=== PATIENT | female | born 1960 | race Caucasian/White ===

== ENCOUNTER → 2020-10-06 12:44 | Outpatient (CLI) | payer OTHER, MEDICAID, SELFPAY ==
--- NOTE | 2020-10-06 | DI.MRI.S_ITS ---
PROCEDURE: MR HEAD/BRAIN WO CON INDICATIONS: Other amnesia TECHNIQUE: Non-contrast axial T1 spin echo, axial T2 fast spin echo, sagittal and axial FLAIR, coronal T2 fast spin echo, axial gradient echo, axial diffusion and ADC through the brain. COMPARISON: None. FINDINGS: Image quality: This examination is limited by involuntary motion artifact. CSF spaces: Ventricles appear symmetric in size and shape. Basal cisterns are patent. No extra-axial fluid collections. Brain: No intracranial bleeds or mass effects. There is cerebral volume loss for age. There are periventricular and deep white matter chronic small vessel ischemic changes. Brainstem appears normal. Diffusion-weighted images show no acute ischemic insults. No chronic ischemic insults. Normal intravascular flow voids are present. Skull and face: Calvarial bone marrow is normal in signal. Orbits are normal. Sinuses: Sinuses and mastoids are clear. IMPRESSION: Limited study demonstrating age-appropriate brain parenchymal volume loss and chronic small vessel ischemic change. No findings of acute or subacute infarction can be seen. Dictated by: Santiago Slater M.D. on 10/06/2020 at 12:42 Approved by: Santiago Slater M.D. on 10/06/2020 at 12:43
== END ==
PROVIDERS: PCP Nurse Practitioner Family; Referring Provider Nurse Practitioner Family; Visit Provider Nurse Practitioner Family
DX: R41.3 Other amnesia (principal); R41.89 Other symptoms and signs involving cognitive functions and awareness; R46.89 Other symptoms and signs involving appearance and behavior
CPT/HCPCS: 70551

== ENCOUNTER 2020-11-10 18:26 | Inpatient (IN) | payer OTHER, MEDICAID, SELFPAY ==
[2020-11-10] VITALS (11 sets, daily range): BP systolic 110–130; BP diastolic 54–86; PULSE 82–102; RESP 24; TEMP 36.3; O2SAT 93–96
[2020-11-10 20:20] LABS: Add Manual Diff / Slide Review NO; Basophils Absolute Auto 0 /uL (0-100); Basophils Percent Auto 0.3 % (0-2); Eosinophils Absolute Auto 200 /uL (0-450); Eosinophils Percent Auto 1.4 % (2-4); Hematocrit 38.8 % (36-46); Hemoglobin 12.7 g/dL (12.0-16.0); Lymphocytes Absolute Auto 1100 /uL (1100-4500); Mean Corpuscular HGB Conc 32.9 % (30-36); Mean Corpuscular Hemoglobin 29.4 PG (26-34); Mean Corpuscular Volume 89.4 fL (80-100); Monocytes Absolute Auto 700 /uL (0-900); Monocytes Percent Auto 5.7 % (3-14); Neutrophils Absolute Auto 10200 /uL (1500-7000); Neutrophils Percent Auto 83.6 % (50-75); Platelet Count 502 X10^3/uL (150-400); Red Blood Cell Count 4.34 X10^6/uL (4.0-5.2); Red Cell Distribution Width 14.3 % (11.6-14.8); White Blood Cell Count 12.2 X10^3/uL (4.5-11.0)
[2020-11-10 20:34] LABS: Acetaminophen < 10 ug/mL (10-30); Alanine Aminotransferase 11 IU/L (<35); Albumin 4.4 g/dL (3.5-5.0); Albumin Globulin Ratio 1.3 (1.0-2.8); Alkaline Phosphatase 105 U/L (38-126); Aspartate Aminotransferase 18 IU/L (14-36); BUN Creatinine Ratio 8.1 (6-22); Bilirubin Total 0.4 mg/dL (0.2-1.3); Blood Urea Nitrogen 12 mg/dL (7-17); Calcium 10.6 mg/dL (8.4-10.2); Carbon Dioxide 21 mmol/L (22-32); Chloride 104 mmol/L (98-107); Creatine Kinase 47 U/L (30-135); Estimated Glomerular Filt Rate 35.7 mL/min (>60); Ethanol (ETOH) < 10 mg/dL; Globulin 3.4 g/dL (1.7-4.1); Glucose 124 mg/dL (80-110); HEMOLYSIS < 15 (0-50); Potassium 3.8 mmol/L (3.4-5.1); Salicylate < 1.0 mg/dL (<20); Sodium 135 mmol/L (137-145); Total Protein 7.8 g/dL (6.3-8.2)
[2020-11-10 20:36] LABS: Ammonia (NH3) < 9 umol/L (9-30); Lactate (Lactic Acid) 0.8 mmol/L (0.7-2.1)
[2020-11-10 20:44] LABS: Troponin I < 0.012 ng/mL (0.01-0.034)
[2020-11-10 20:49] LABS: Procalcitonin 0.11 ng/mL (<0.5)
[2020-11-10 20:51] LABS: Lithium 2.1 mmol/L (0.6-1.2)
--- NOTE | 2020-11-10 21:08 | ED.GENADULT ---
HPI - General Adult General Chief complaint: Altered Mental Status Stated complaint: Stopped lithium, disorganized thoughts Time Seen by Provider: 11/10/20 19:59 Source: patient Mode of arrival: Ambulatory History of Present Illness HPI narrative: Patient is a 60-year-old female who arrived by private vehicle under recommendation of her mental health provider for evaluation of which she describes is disoriented thoughts since stopping her lithium. Patient states that approximately 5 days ago she stopped all of her medication. She also states that she stopped eating and drinking at that time. She could not give me an exact reason as to why she decided to do this but 3 days ago started to feel very poorly. She then realized ?maybe I am on these medications for reason ?but did not start taking them again. She then got in contact with her prescribing provider who advised that she come to the emergency department for evaluation. Related Data Home Medications Medication Instructions Recorded Confirmed carisoprodol 250 mg tablet (Soma) 250 mg PO TID 07/11/19 07/11/19 clonazepam 1 mg tablet (Klonopin) 1 mg PO BID 07/11/19 07/11/19 conj estrog-medroxyprogest raeann PO 07/11/19 07/11/19 [Prempro] levothyroxine 25 mcg capsule 25 mcg PO DAILY 07/11/19 07/11/19 lithium carbonate 600 mg capsule 600 mg PO DAILY cap 07/11/19 07/11/19 Allergies Allergy/AdvReac Type Severity Reaction Status Date / Time No Known Drug Allergies Allergy Unverified 07/11/19 10:05 Review of Systems Constitutional Constitutional: Denies fever(s), Denies headache(s) and Reports weakness Eyes Eyes: Denies change in vision ENT Ears, Nose, Mouth, and Throat: Denies vertigo, Denies dizziness and Denies headache(s) Cardiovascular Cardiovascular: Denies chest pain and Denies dyspnea Respiratory Respiratory: Denies dyspnea Gastrointestinal Gastrointestinal: Denies abdominal pain Musculoskeletal Musculoskeletal: Reports system reviewed and no additional complaints, except as documented Integumentary/Breasts Skin/Breast: Reports system reviewed and no additional complaints, except as documented Neurologic Neurologic: Denies abnormal speech, Reports behavioral changes, Reports confusion, Denies vertigo, Denies dizziness, Denies headache(s) and Reports weakness Psychiatric Psychiatric: Denies anxiety, Reports behavioral changes, Reports confusion, Denies homicidal ideation and Denies suicidal ideation Endocrine Endocrine: Reports system reviewed and no additional complaints, except as documented Hematologic/Lymphatic On Anticoagulants: No Allergic/Immunologic Allergic/Immunologic: Reports system reviewed and no additional complaints, except as documented Patient History Medical History Acne Anemia (~2015) Anxiety and depression Bipolar disease, chronic Carpal tunnel syndrome Chronic back pain Fibromyalgia (~1993) Headache Hypothyroidism Low grade squamous intraepithelial lesion (LGSIL) on cervical Pap smear Migraines Plantar warts Shoulder pain (~2017) Tremor Surgical History (Updated 07/21/19 @ 21:12 by Helen Gallegos) Anesthesia H/O hand surgery History of section Family History (Updated 07/11/19 @ 11:29 by Ignacia Tovar MD) Father CAD (coronary artery disease) Mother Uterine cancer Sister No problems noted. Sister No problems noted. Daughter No problems noted. Daughter No problems noted. Son No problems noted. Social History Smoking Status: Never smoker Smoking Status: Never smoker Exam Initial Vital Signs Initial Vital Signs: Vital Signs Temperature 97.4 F L 11/10/20 18:25 Pulse Rate 102 H 11/10/20 18:25 Respiratory Rate 24 11/10/20 18:25 Pulse Oximetry 94 11/10/20 18:25 Const General: cooperative and comfortable HENMT Head: normal to inspection and normocephalic Resp Auscultation: clear to auscultation bilaterally Cardio Rate: regular rate GI Inspection: normal to inspection Skin General: no rashes or lesions noted Neuro General: patient alert, patient awake, patient oriented x3 and moves all extremities Extrem General: capillary refill normal Psych Appearance: disheveled Other: She does have a flat affect, denies SI or HI. His calm. Cooperative. Course Orders Ordered: ED Orders 11/11/20 02:56 Ictotest Urine Stat Urinalysis and Microscopic Stat 11/11/20 03:00 Basic Metabolic Panel Stat [place] Stat 11/11/20 03:38 Urine Drug Screen, Rapid Stat 11/11/20 07:00 [place] Stat Sodium Chloride (Normal Saline 0.9%) 1,000 mls @ 125 mls/hr IV CONT YRIS Last Admin: 11/10/20 21:34 Dose: 125 mls/hr Documented by: SHANDRA Discontinued Medications Nicotine (Nicotine 21 Mg Patch) 21 mg TOP NOW ONE Stop: 11/10/20 21:13 Last Admin: 11/10/20 21:28 Dose: Not Given Documented by: CLAUDIA Vital Signs Vital signs: Vital Signs - 8 hr 11/11/20 00:30 11/11/20 01:00 11/11/20 01:30 Pulse Rate 85 83 85 Blood Pressure 106/68 112/57 L Pulse Oximetry 96 93 90 L 11/11/20 01:31 11/11/20 02:00 11/11/20 02:30 Pulse Rate 82 83 82 Blood Pressure 105/54 L 119/58 L 129/59 L Pulse Oximetry 98 95 95 11/11/20 03:00 11/11/20 03:09 11/11/20 03:30 Pulse Rate 88 85 82 Blood Pressure 117/57 L 118/60 Pulse Oximetry 95 96 95 11/11/20 04:00 11/11/20 04:01 11/11/20 04:30 Pulse Rate 81 82 80 Blood Pressure 115/58 L 123/58 L Pulse Oximetry 93 93 94 11/11/20 05:00 11/11/20 05:30 11/11/20 05:47 Pulse Rate 75 97 H 80 Blood Pressure 167/65 H Pulse Oximetry 97 94 962 H 11/11/20 06:00 11/11/20 06:30 Pulse Rate 88 86 Blood Pressure Pulse Oximetry 93 93 Medical Decision Making Lab Data Lab results reviewed: Yes I reviewed the patient's lab results. Result diagrams: 11/10/20 20:05 11/11/20 03:00 Labs: Lab Results 11/10/20 11/10/20 11/10/20 Range/Units 20:05 20:05 20:05 WBC 12.2 H (4.5-11.0) X10^3/uL RBC 4.34 (4.0-5.2) X10^6/uL Hgb 12.7 (12.0-16.0) g/dL Hct 38.8 (36-46) % MCV 89.4 (80-100) fL MCH 29.4 (26-34) PG MCHC 32.9 (30-36) % RDW 14.3 (11.6-14.8) % Plt Count 502 H (150-400) X10^3/uL Neut % (Auto) 83.6 H (50-75) % Lymph % (Auto) 9.0 L (25-40) % Wallace % (Auto) 5.7 (3-14) % Eos % (Auto) 1.4 L (2-4) % Baso % (Auto) 0.3 (0-2) % Neut # (Auto) 97198 H (1107-5837) /uL Lymph # (Auto) 1100 (8420-3032) /uL Wallace # (Auto) 700 (0-900) /uL Eos # (Auto) 200 (0-450) /uL Baso # (Auto) 0 (0-100) /uL Sodium 135 L (137-145) mmol/L Potassium 3.8 (3.4-5.1) mmol/L Chloride 104 (98-107) mmol/L Carbon Dioxide 21 L (22-32) mmol/L BUN 12 (7-17) mg/dL Creatinine 1.49 H (0.52-1.04) mg/dL Estimated GFR 35.7 L (>60) mL/min BUN/Creatinine Ratio 8.1 (6-22) Glucose 124 H (80-110) mg/dL Lactate 0.8 (0.7-2.1) mmol/L Calcium 10.6 H (8.4-10.2) mg/dL Total Bilirubin 0.4 (0.2-1.3) mg/dL AST 18 (14-36) IU/L ALT 11 (<35) IU/L Alkaline Phosphatase 105 (38-126) U/L Ammonia (9-30) umol/L Total Creatine Kinase 47 (30-135) U/L CK-MB (CK-2) TNP CK-MB (CK-2) Rel Index TNP Troponin I < 0.012 (0.01-0.034) ng/mL Total Protein 7.8 (6.3-8.2) g/dL Albumin 4.4 (3.5-5.0) g/dL Globulin 3.4 (1.7-4.1) g/dL Albumin/Globulin Ratio 1.3 (1.0-2.8) Procalcitonin 0.11 (<0.5) ng/mL TSH (0.47-4.68) uIU/mL Urine Color Urine Appearance Urine pH (4.5-8.0) Ur Specific [place] (1.000-1.035) Urine Protein (Negative) Urine Glucose (UA) (Negative) g/dL Urine Ketones (NEGATIVE) Urine Occult Blood (Negative) Urine Nitrate (Negative) Urine Bilirubin (NEGATIVE) Ur Bilirubin Confirm (Negative) Urine Urobilinogen (0.2) E.U./dL Ur Leukocyte Esterase (NEGATIVE) Urine RBC (0-5/HPF) Urine WBC (0-5/HPF) Ur Squamous Epith Cells (0-5/HPF) Urine Bacteria (None) Hyaline Casts (None) Ur Culture Indicated? Salicylates < 1.0 (<20) mg/dL U Opiates 300ng/mL cut (Negative) Ur Oxycodone Screen (Negative) Urine Methadone Screen (Negative) Acetaminophen < 10 L (10-30) ug/mL Ur Barbiturates Screen (Negative) U Tricyclic Antidepress (Negative) Ur Phencyclidine Scrn (Negative) Ur Amphetamines Screen (Negative) U Methamphetamines Scrn (Negative) Ur MDMA Scrn (Ecstasy) (Negative) U Benzodiazepines Scrn (Negative) [place] (0.6-1.2) mmol/L Urine Cocaine Screen (Negative) U Marijuana (THC) Screen (Negative) Ethyl Alcohol < 10 ( - 10) mg/dL 11/10/20 11/10/20 11/10/20 Range/Units 20:05 20:05 20:05 WBC (4.5-11.0) X10^3/uL RBC (4.0-5.2) X10^6/uL Hgb (12.0-16.0) g/dL Hct (36-46) % MCV (80-100) fL MCH (26-34) PG MCHC (30-36) % RDW (11.6-14.8) % Plt Count (150-400) X10^3/uL Neut % (Auto) (50-75) % Lymph % (Auto) (25-40) % [place] % (Auto) (3-14) % Eos % (Auto) (2-4) % Baso % (Auto) (0-2) % Neut # (Auto) (2977-5961) /uL Lymph # (Auto) (2923-4410) /uL [place] # (Auto) (0-900) /uL Eos # (Auto) (0-450) /uL Baso # (Auto) (0-100) /uL Sodium (137-145) mmol/L Potassium (3.4-5.1) mmol/L Chloride (98-107) mmol/L Carbon Dioxide (22-32) mmol/L BUN (7-17) mg/dL Creatinine (0.52-1.04) mg/dL Estimated GFR (>60) mL/min BUN/Creatinine Ratio (6-22) Glucose (80-110) mg/dL Lactate (0.7-2.1) mmol/L Calcium (8.4-10.2) mg/dL Total Bilirubin (0.2-1.3) mg/dL AST (14-36) IU/L ALT (<35) IU/L Alkaline Phosphatase (38-126) U/L Ammonia < 9 L (9-30) umol/L Total Creatine Kinase (30-135) U/L CK-MB (CK-2) CK-MB (CK-2) Rel Index Troponin I (0.01-0.034) ng/mL Total Protein (6.3-8.2) g/dL Albumin (3.5-5.0) g/dL Globulin (1.7-4.1) g/dL Albumin/Globulin Ratio (1.0-2.8) Procalcitonin (<0.5) ng/mL TSH 2.28 (0.47-4.68) uIU/mL Urine Color Urine Appearance Urine pH (4.5-8.0) Ur Specific [place] (1.000-1.035) Urine Protein (Negative) Urine Glucose (UA) (Negative) g/dL Urine Ketones (NEGATIVE) Urine Occult Blood (Negative) Urine Nitrate (Negative) Urine Bilirubin (NEGATIVE) Ur Bilirubin Confirm (Negative) Urine Urobilinogen (0.2) E.U./dL Ur Leukocyte Esterase (NEGATIVE) Urine RBC (0-5/HPF) Urine WBC (0-5/HPF) Ur Squamous Epith Cells (0-5/HPF) Urine Bacteria (None) Hyaline Casts (None) Ur Culture Indicated? Salicylates Cancelled (<20) mg/dL U Opiates 300ng/mL cut (Negative) Ur Oxycodone Screen (Negative) Urine Methadone Screen (Negative) Acetaminophen Cancelled (10-30) ug/mL Ur Barbiturates Screen (Negative) U Tricyclic Antidepress (Negative) Ur Phencyclidine Scrn (Negative) Ur Amphetamines Screen (Negative) U Methamphetamines Scrn (Negative) Ur MDMA Scrn (Ecstasy) (Negative) U Benzodiazepines Scrn (Negative) [place] 2.1 H* (0.6-1.2) mmol/L Urine Cocaine Screen (Negative) U Marijuana (THC) Screen (Negative) Ethyl Alcohol ( - 10) mg/dL 11/10/20 11/11/20 11/11/20 Range/Units 23:00 02:56 02:56 WBC (4.5-11.0) X10^3/uL RBC (4.0-5.2) X10^6/uL Hgb (12.0-16.0) g/dL Hct (36-46) % MCV (80-100) fL MCH (26-34) PG MCHC (30-36) % RDW (11.6-14.8) % Plt Count (150-400) X10^3/uL Neut % (Auto) (50-75) % Lymph % (Auto) (25-40) % [place] % (Auto) (3-14) % Eos % (Auto) (2-4) % Baso % (Auto) (0-2) % Neut # (Auto) (4174-4150) /uL Lymph # (Auto) (6882-0115) /uL [place] # (Auto) (0-900) /uL Eos # (Auto) (0-450) /uL Baso # (Auto) (0-100) /uL Sodium (137-145) mmol/L Potassium (3.4-5.1) mmol/L Chloride (98-107) mmol/L Carbon Dioxide (22-32) mmol/L BUN (7-17) mg/dL Creatinine (0.52-1.04) mg/dL Estimated GFR (>60) mL/min BUN/Creatinine Ratio (6-22) Glucose (80-110) mg/dL Lactate (0.7-2.1) mmol/L Calcium (8.4-10.2) mg/dL Total Bilirubin (0.2-1.3) mg/dL AST (14-36) IU/L ALT (<35) IU/L Alkaline Phosphatase (38-126) U/L Ammonia (9-30) umol/L Total Creatine Kinase (30-135) U/L CK-MB (CK-2) CK-MB (CK-2) Rel Index Troponin I (0.01-0.034) ng/mL Total Protein (6.3-8.2) g/dL Albumin (3.5-5.0) g/dL Globulin (1.7-4.1) g/dL Albumin/Globulin Ratio (1.0-2.8) Procalcitonin (<0.5) ng/mL TSH (0.47-4.68) uIU/mL Urine Color Yellow Urine Appearance Clear Urine pH 6.5 (4.5-8.0) Ur Specific [place] 1.020 (1.000-1.035) Urine Protein 1+ H (Negative) Urine Glucose (UA) Negative (Negative) g/dL Urine Ketones 1+ H (NEGATIVE) Urine Occult Blood Negative (Negative) Urine Nitrate Negative (Negative) Urine Bilirubin 2+ H (NEGATIVE) Ur Bilirubin Confirm Negative (Negative) Urine Urobilinogen 0.2 (0.2) E.U./dL Ur Leukocyte Esterase 1+ H (NEGATIVE) Urine RBC None seen (0-5/HPF) Urine WBC 1-5/hpf (0-5/HPF) Ur Squamous Epith Cells 5-10 /hpf H (0-5/HPF) Urine Bacteria Few (2-10) H (None) Hyaline Casts 10-30/lpf (None) Ur Culture Indicated? Cult not indicated Salicylates (<20) mg/dL U Opiates 300ng/mL cut Negative (Negative) Ur Oxycodone Screen Negative (Negative) Urine Methadone Screen Negative (Negative) Acetaminophen (10-30) ug/mL Ur Barbiturates Screen Negative (Negative) U Tricyclic Antidepress Positive H (Negative) Ur Phencyclidine Scrn Negative (Negative) Ur Amphetamines Screen Negative (Negative) U Methamphetamines Scrn Negative (Negative) Ur MDMA Scrn (Ecstasy) Negative (Negative) U Benzodiazepines Scrn Negative (Negative) [place] 2.1 H* (0.6-1.2) mmol/L Urine Cocaine Screen Negative (Negative) U Marijuana (THC) Screen Negative (Negative) Ethyl Alcohol ( - 10) mg/dL 11/11/20 11/11/20 Range/Units 03:00 03:00 WBC (4.5-11.0) X10^3/uL RBC (4.0-5.2) X10^6/uL Hgb (12.0-16.0) g/dL Hct (36-46) % MCV (80-100) fL MCH (26-34) PG MCHC (30-36) % RDW (11.6-14.8) % Plt Count (150-400) X10^3/uL Neut % (Auto) (50-75) % Lymph % (Auto) (25-40) % [place] % (Auto) (3-14) % Eos % (Auto) (2-4) % Baso % (Auto) (0-2) % Neut # (Auto) (6807-8050) /uL Lymph # (Auto) (5868-4402) /uL [place] # (Auto) (0-900) /uL Eos # (Auto) (0-450) /uL Baso # (Auto) (0-100) /uL Sodium 137 (137-145) mmol/L Potassium 3.5 (3.4-5.1) mmol/L Chloride 105 (98-107) mmol/L Carbon Dioxide 22 (22-32) mmol/L BUN 12 (7-17) mg/dL Creatinine 1.21 H (0.52-1.04) mg/dL Estimated GFR 45.4 L (>60) mL/min BUN/Creatinine Ratio 9.9 (6-22) Glucose 106 (80-110) mg/dL Lactate (0.7-2.1) mmol/L Calcium 9.8 (8.4-10.2) mg/dL Total Bilirubin (0.2-1.3) mg/dL AST (14-36) IU/L ALT (<35) IU/L Alkaline Phosphatase (38-126) U/L Ammonia (9-30) umol/L Total Creatine Kinase (30-135) U/L CK-MB (CK-2) CK-MB (CK-2) Rel Index Troponin I (0.01-0.034) ng/mL Total Protein (6.3-8.2) g/dL Albumin (3.5-5.0) g/dL Globulin (1.7-4.1) g/dL Albumin/Globulin Ratio (1.0-2.8) Procalcitonin (<0.5) ng/mL TSH (0.47-4.68) uIU/mL Urine Color Urine Appearance Urine pH (4.5-8.0) Ur Specific [place] (1.000-1.035) Urine Protein (Negative) Urine Glucose (UA) (Negative) g/dL Urine Ketones (NEGATIVE) Urine Occult Blood (Negative) Urine Nitrate (Negative) Urine Bilirubin (NEGATIVE) Ur Bilirubin Confirm (Negative) Urine Urobilinogen (0.2) E.U./dL Ur Leukocyte Esterase (NEGATIVE) Urine RBC (0-5/HPF) Urine WBC (0-5/HPF) Ur Squamous Epith Cells (0-5/HPF) Urine Bacteria (None) Hyaline Casts (None) Ur Culture Indicated? Salicylates (<20) mg/dL U Opiates 300ng/mL cut (Negative) Ur Oxycodone Screen (Negative) Urine Methadone Screen (Negative) Acetaminophen (10-30) ug/mL Ur Barbiturates Screen (Negative) U Tricyclic Antidepress (Negative) Ur Phencyclidine Scrn (Negative) Ur Amphetamines Screen (Negative) U Methamphetamines Scrn (Negative) Ur MDMA Scrn (Ecstasy) (Negative) U Benzodiazepines Scrn (Negative) [place] 2.0 H* (0.6-1.2) mmol/L Urine Cocaine Screen (Negative) U Marijuana (THC) Screen (Negative) Ethyl Alcohol ( - 10) mg/dL ECG Data Attestation: I personally reviewed and interpreted this ECG as follows: Interpretation: Sinus rhythm Ventricular rate 87 Normal axis Quite a bit of artifact which hinders interpretation Normal QTC QRS 92 milliseconds MDM Narrative Medical decision making narrative: Patient states she has not taken any of her medicines in the past 5 days. Her initial lithium level was 2.1. She did not have other indication of toxicity. Discussed the case with poison Control who recommended fluid hydration repeating the lithium level. Repeats for 2.1 and again 2.0. Her creatinine another kidney function improved. At 1 point early this morning she did come out of her room and was confused she pulled out her IV. She was easily redirectable the IV was replaced. Given her elevated lithium level in her presentation she does require admission to the hospital for further evaluation and treatment. Discussed the case with Dr. Jones with Internal Medicine who will admit for further evaluation and treatment. Discharge Plan Departure Patient Disposition: Admitted As Inpatient Clinical Impression: Elevated lithium level
[2020-11-10 21:30] LABS: Thyroid Stimulating Hormone 2.28 uIU/mL (0.47-4.68)
[2020-11-10] MEDS: SODIUM CHLORIDE 0.9% 1,000 ML 125 ML IV (21:34)
--- NOTE | 2020-11-10 23:20 | PC.NURSE ---
Awake, Alert, Oriented to Person and Place. Forgetful on Situation and Time.
[2020-11-10 23:42] LABS: Lithium 2.1 mmol/L (0.6-1.2)
[2020-11-11] VITALS (27 sets, daily range): BP systolic 105–167; BP diastolic 54–79; PULSE 75–97; RESP 18–20; TEMP 36.2–37.1; O2SAT 90–962; BMI 36.0
[2020-11-11 03:09] LABS: RBC Urine None Seen (0-5/HPF)
[2020-11-11 03:15] LABS: BUN Creatinine Ratio 9.9 (6-22); Blood Urea Nitrogen 12 mg/dL (7-17); Calcium 9.8 mg/dL (8.4-10.2); Carbon Dioxide 22 mmol/L (22-32); Chloride 105 mmol/L (98-107); Estimated Glomerular Filt Rate 45.4 mL/min (>60); Glucose 106 mg/dL (80-110); HEMOLYSIS < 15 (0-50); Potassium 3.5 mmol/L (3.4-5.1); Sodium 137 mmol/L (137-145)
[2020-11-11 03:15] LABS: Appearance Urine UA CLEAR; Bilirubin Urine UA 2+ (NEGATIVE); Color Urine UA YELLOW; Glucose Urine UA NEGATIVE (Negative); Ketones Urine UA 1+ (NEGATIVE); Leukocyte Esterase Urine UA 1+ (NEGATIVE); Nitrite Urine UA NEGATIVE (Negative); Occult Blood Urine UA NEGATIVE (Negative); Protein Urine UA 1+ (Negative); Urobilinogen Urine UA 0.2 E.U./dL (0.2)
[2020-11-11 03:21] LABS: pH Urine UA 6.5 (4.5-8.0)
[2020-11-11 03:23] LABS: UR Morphine/Opiate cutoff 300 Negative (Negative); Ur Creatinine 50 (Normal); Urine Amphetamines Negative (Negative); Urine Barbiturates Negative (Negative); Urine Benzodiazepines Negative (Negative); Urine Cocaine Negative (Negative); Urine MDMA Negative (Negative); Urine Methadone Negative (Negative); Urine Methamphetamines Negative (Negative); Urine Oxycodone Negative (Negative); Urine Phencyclidine Negative (Negative); Urine Tetrahydrocannabinol Negative (Negative); Urine Tricyclic Antidepressant Positive (Negative); Urine pH 6.5 (Normal)
[2020-11-11 03:51] LABS: Bacteria Urine Few (2-10); Culture Indicated Urine Cult Not Indicated; Hyaline Casts Urine 10-30/LPF; Ictotest Urine Negative (Negative); Squamous Epithelial Cell Urine 5-10 /HPF (0-5/HPF); WBC Urine 1-5/HPF (0-5/HPF)
--- NOTE | 2020-11-11 05:50 | PC.NURSE ---
She pulled her IV out patent and intact,I started a new line in her right AC and wrapped it with coban,she is confused to place ,she knew she was in the hospital but did not know where,she knew her name,my name and the year.
--- NOTE | 2020-11-11 08:08 | PC.NURSE ---
checking on patient, she states I've been tied down all night, i said I don't believe so, pt points into the direction of her bp cuff. i explained I think its the bp cuff, pt states its not my first rodeo i explained at this time nothing is touching her or tieing her down. she said ok.
[2020-11-11 11:16] LABS: COVID19 - ADMIT (NP swab/PCR) Negative (Negative)
[2020-11-11] MEDS: SODIUM CHLORIDE 0.9% 1,000 ML 125 ML IV ×2 (11:45→21:39)
[2020-11-11] MEDS: ACETAMINOPHEN 325 MG TABLET 650 MG PO (12:57)
--- NOTE | 2020-11-11 14:13 | P.HP_ITS ---
History of Present Illness History of Present Illness Date Patient Seen: 11/11/20 Time Patient Seen: 14:14 Chief complaint: Stopped lithium, disorganized thoughts Narrative: This is a 60 year old female with a PMH of psychiatric disorder (? bipolar schizophrenia) who presented to the emergency room yesterday evening at the recommendation of her mental health provider. She moved to [place] from [place] 10 days ago approximatelely. Since that time she states she has only slept 1 night and had not taken any of her medications. She states she sometimes guesses on her medications and cannot recall at this time exactly which medications she takes. She felt not herself starting ten days ago but is very non-descript about what she was feeling, only stating that she felt not herself. She did have lack of sleep, but also fatigue. She may have halluci nated a dog at one point but this seemed fairly normal to her. She cannot recall why she stopped taking her medications nor why she restarted them. She denies any tremors, nausea, vomiting, adbominal pain, dysuria, urinary frequency. She states her psychiatrist is a Dr. Renee Wilburn in [place], [place]. In the emergency room, her vital signs were largely unremarkable, though her blood pressures were notably labile. Laboratory evaluation revealed a mild leukocytosis with WBC 12.2, platelet count 5 O2, but was otherwise unremarkable. BMP revealed an elevated creatinine at 1.49, improved to 1.21 with fluids, her baseline is currently unknown. Her calcium is also mildly elevated at 10.6 but this improved with fluids. Ammonia level was less than assay, troponin was negative. Procalcitonin was 0.11, and TSH was 2.2 weight. Her lithium level was elevated at 2.1 and she was admitted to Medicine for further management of her elevated lithium level. Urinalysis was performed which was contaminated but did not show evidence of active infection. Urine drug screen was positive for TCAs but was otherwise unremarkable. Patient History Medical History Acne Anemia (~2015) Anxiety and depression Bipolar disease, chronic Carpal tunnel syndrome Chronic back pain Fibromyalgia (~1993) Headache Hypothyroidism Low grade squamous intraepithelial lesion (LGSIL) on cervical Pap smear Migraines Plantar warts Shoulder pain (~2017) Tremor Surgical History (Updated 07/21/19 @ 21:12 by Helen Gallegos) Anesthesia H/O hand surgery History of section Family & Social History Family History Father CAD (coronary artery disease) Mother Uterine cancer Sister No problems noted. Sister No problems noted. Daughter No problems noted. Daughter No problems noted. Son No problems noted. Social History: household members none Prior Living Arrangements Apartment/Condo Safety & Behavioral: Feels Safe in Current Yes Environment Been Physically Hurt or No Threatened By a Person Suicidal Ideation Description None Suicide Plan Description No Plan Tobacco & Substance use: Tobacco type cannabis/marijuana Smoking Status Smoker, status unknown alcohol intake never Substance Use Type marijuana Meds Home Medications and Allergies Home Medications Medication Instructions Recorded Confirmed Type carisoprodol 250 mg tablet (Soma) 350 mg PO TID 07/11/19 11/11/20 History clonazepam 1 mg tablet (Klonopin) 0.25 mg PO QPM 07/11/19 11/11/20 History levothyroxine 25 mcg capsule 112 mcg PO DAILY 07/11/19 11/11/20 History amitriptyline 75 mg tablet 75 mg PO BEDTIME 11/11/20 11/11/20 History clonazepam 0.125 mg disintegrating 0.125 mg PO QAM 11/11/20 11/11/20 History tablet hydroxyzine HCl 25 mg tablet 50 mg PO Q4HR PRN 11/11/20 11/11/20 History lithium carbonate 300 mg 600 mg PO BEDTIME 11/11/20 11/11/20 History tablet,extended release omeprazole 40 mg capsule,delayed 40 mg PO DAILY 11/11/20 11/11/20 History release risperidone 1 mg tablet 1 mg PO QAM 11/11/20 11/11/20 History risperidone 1 mg tablet 2 mg PO BEDTIME 11/11/20 11/11/20 History simvastatin 40 mg tablet 40 mg PO QPM 11/11/20 11/11/20 History venlafaxine 75 mg tablet,extended 75 mg PO DAILY 11/11/20 11/11/20 History release 24 hr Allergies Allergy/AdvReac Type Severity Reaction Status Date / Time No Known Drug Allergies Allergy Unverified 07/11/19 10:05 Review of Systems Review of Systems Narrative: All other systems reviewed with the patient and are negative unless otherwise stated. Exam Vital Signs (past 8 hours): - 11/11/20 06:30 11/11/20 07:03 11/11/20 07:30 Temperature 98.3 F Pulse Rate 86 88 86 Respiratory Rate Blood Pressure 121/56 L Pulse Oximetry 93 94 96 11/11/20 09:13 11/11/20 09:14 11/11/20 11:45 Temperature 98.7 F Pulse Rate 90 Respiratory Rate 20 Blood Pressure 121/56 L 149/59 H Pulse Oximetry 99 96 99 Oxygen Delivery Method Room Air Oxygen Flow Rate 0 Narrative Exam Narrative: GENERAL APPEARANCE: Well developed, well nourished, in no acute distress. SKIN:friable skin, no erythema, rashes. HEENT: Normocephalic atraumatic, extraocular muscles are intact, oropharynx is clear and mucous membranes are moist, neck is supple without adenopathy NECK: Supple and symmetric. There was no thyroid enlargement, and no tenderness, or masses were felt. CHEST: Normal AP diameter and normal contour without any kyphoscoliosis. LUNGS: Auscultation of the lungs revealed no wheezes, rhonchi, or rales. CARDIOVASCULAR: There was a regular rate and rhythm without any murmurs, gallops, rubs. Peripheral pulses were 2+ and symmetric. ABDOMEN: Soft and nontender with normal bowel sounds. No ascites was noted. MUSCULOSKELETAL: There was no tenderness or effusions noted. Muscle strength and tone were normal. EXTREMITIES: No cyanosis, clubbing or edema. NEUROLOGIC: Alert and oriented. No focal deficits. Apprears slow and is mildly confused. Psych: Odd affect but states she feels to be her usual self now. No current SI or HI, no hallucinations currently. Objective ECG Impression: Normal sinus rhythm, significant artifact which makes interpretation difficult Labs Result Diagrams: 11/10/20 20:05 11/11/20 03:00 Labs: Laboratory Results - last 24 hr 11/10/20 11/10/20 11/10/20 20:05 20:05 20:05 WBC 12.2 H RBC 4.34 Hgb 12.7 Hct 38.8 MCV 89.4 MCH 29.4 MCHC 32.9 RDW 14.3 Plt Count 502 H Neut % (Auto) 83.6 H Lymph % (Auto) 9.0 L [place] % (Auto) 5.7 Eos % (Auto) 1.4 L Baso % (Auto) 0.3 Neut # (Auto) 39893 H Lymph # (Auto) 1100 [place] # (Auto) 700 Eos # (Auto) 200 Baso # (Auto) 0 Sodium 135 L Potassium 3.8 Chloride 104 Carbon Dioxide 21 L BUN 12 Creatinine 1.49 H Estimated GFR 35.7 L BUN/Creatinine Ratio 8.1 Glucose 124 H Lactate 0.8 Calcium 10.6 H Total Bilirubin 0.4 AST 18 ALT 11 Alkaline Phosphatase 105 Ammonia Total Creatine Kinase 47 CK-MB (CK-2) TNP CK-MB (CK-2) Rel Index TNP Troponin I < 0.012 Total Protein 7.8 Albumin 4.4 Globulin 3.4 Albumin/Globulin Ratio 1.3 Procalcitonin 0.11 TSH Urine Color Urine Appearance Urine pH Ur Specific [place] Urine Protein Urine Glucose (UA) Urine Ketones Urine Occult Blood Urine Nitrate Urine Bilirubin Ur Bilirubin Confirm Urine Urobilinogen Ur Leukocyte Esterase Urine RBC Urine WBC Ur Squamous Epith Cells Urine Bacteria Hyaline Casts Ur Culture Indicated? Salicylates < 1.0 U Opiates 300ng/mL cut Ur Oxycodone Screen Urine Methadone Screen Acetaminophen < 10 L Ur Barbiturates Screen U Tricyclic Antidepress Ur Phencyclidine Scrn Ur Amphetamines Screen U Methamphetamines Scrn Ur MDMA Scrn (Ecstasy) U Benzodiazepines Scrn [place] Urine Cocaine Screen U Marijuana (THC) Screen Ethyl Alcohol < 10 SARS-CoV-2 (PCR) 11/10/20 11/10/20 11/10/20 20:05 20:05 20:05 WBC RBC Hgb Hct MCV MCH MCHC RDW Plt Count Neut % (Auto) Lymph % (Auto) [place] % (Auto) Eos % (Auto) Baso % (Auto) Neut # (Auto) Lymph # (Auto) [place] # (Auto) Eos # (Auto) Baso # (Auto) Sodium Potassium Chloride Carbon Dioxide BUN Creatinine Estimated GFR BUN/Creatinine Ratio Glucose Lactate Calcium Total Bilirubin AST ALT Alkaline Phosphatase Ammonia < 9 L Total Creatine Kinase CK-MB (CK-2) CK-MB (CK-2) Rel Index Troponin I Total Protein Albumin Globulin Albumin/Globulin Ratio Procalcitonin TSH 2.28 Urine Color Urine Appearance Urine pH Ur Specific [place] Urine Protein Urine Glucose (UA) Urine Ketones Urine Occult Blood Urine Nitrate Urine Bilirubin Ur Bilirubin Confirm Urine Urobilinogen Ur Leukocyte Esterase Urine RBC Urine WBC Ur Squamous Epith Cells Urine Bacteria Hyaline Casts Ur Culture Indicated? Salicylates Cancelled U Opiates 300ng/mL cut Ur Oxycodone Screen Urine Methadone Screen Acetaminophen Cancelled Ur Barbiturates Screen U Tricyclic Antidepress Ur Phencyclidine Scrn Ur Amphetamines Screen U Methamphetamines Scrn Ur MDMA Scrn (Ecstasy) U Benzodiazepines Scrn [place] 2.1 H* Urine Cocaine Screen U Marijuana (THC) Screen Ethyl Alcohol SARS-CoV-2 (PCR) 11/10/20 11/11/20 11/11/20 23:00 02:56 02:56 WBC RBC Hgb Hct MCV MCH MCHC RDW Plt Count Neut % (Auto) Lymph % (Auto) [place] % (Auto) Eos % (Auto) Baso % (Auto) Neut # (Auto) Lymph # (Auto) [place] # (Auto) Eos # (Auto) Baso # (Auto) Sodium Potassium Chloride Carbon Dioxide BUN Creatinine Estimated GFR BUN/Creatinine Ratio Glucose Lactate Calcium Total Bilirubin AST ALT Alkaline Phosphatase Ammonia Total Creatine Kinase CK-MB (CK-2) CK-MB (CK-2) Rel Index Troponin I Total Protein Albumin Globulin Albumin/Globulin Ratio Procalcitonin TSH Urine Color Yellow Urine Appearance Clear Urine pH 6.5 Ur Specific [place] 1.020 Urine Protein 1+ H Urine Glucose (UA) Negative Urine Ketones 1+ H Urine Occult Blood Negative Urine Nitrate Negative Urine Bilirubin 2+ H Ur Bilirubin Confirm Negative Urine Urobilinogen 0.2 Ur Leukocyte Esterase 1+ H Urine RBC None seen Urine WBC 1-5/hpf Ur Squamous Epith Cells 5-10 /hpf H Urine Bacteria Few (2-10) H Hyaline Casts 10-30/lpf Ur Culture Indicated? Cult not indicated Salicylates U Opiates 300ng/mL cut Negative Ur Oxycodone Screen Negative Urine Methadone Screen Negative Acetaminophen Ur Barbiturates Screen Negative U Tricyclic Antidepress Positive H Ur Phencyclidine Scrn Negative Ur Amphetamines Screen Negative U Methamphetamines Scrn Negative Ur MDMA Scrn (Ecstasy) Negative U Benzodiazepines Scrn Negative [place] 2.1 H* Urine Cocaine Screen Negative U Marijuana (THC) Screen Negative Ethyl Alcohol SARS-CoV-2 (PCR) 11/11/20 11/11/20 11/11/20 03:00 03:00 08:22 WBC RBC Hgb Hct MCV MCH MCHC RDW Plt Count Neut % (Auto) Lymph % (Auto) [place] % (Auto) Eos % (Auto) Baso % (Auto) Neut # (Auto) Lymph # (Auto) [place] # (Auto) Eos # (Auto) Baso # (Auto) Sodium 137 Potassium 3.5 Chloride 105 Carbon Dioxide 22 BUN 12 Creatinine 1.21 H Estimated GFR 45.4 L BUN/Creatinine Ratio 9.9 Glucose 106 Lactate Calcium 9.8 Total Bilirubin AST ALT Alkaline Phosphatase Ammonia Total Creatine Kinase CK-MB (CK-2) CK-MB (CK-2) Rel Index Troponin I Total Protein Albumin Globulin Albumin/Globulin Ratio Procalcitonin TSH Urine Color Urine Appearance Urine pH Ur Specific [place] Urine Protein Urine Glucose (UA) Urine Ketones Urine Occult Blood Urine Nitrate Urine Bilirubin Ur Bilirubin Confirm Urine Urobilinogen Ur Leukocyte Esterase Urine RBC Urine WBC Ur Squamous Epith Cells Urine Bacteria Hyaline Casts Ur Culture Indicated? Salicylates U Opiates 300ng/mL cut Ur Oxycodone Screen Urine Methadone Screen Acetaminophen Ur Barbiturates Screen U Tricyclic Antidepress Ur Phencyclidine Scrn Ur Amphetamines Screen U Methamphetamines Scrn Ur MDMA Scrn (Ecstasy) U Benzodiazepines Scrn [place] 2.0 H* 2.0 H* Urine Cocaine Screen U Marijuana (THC) Screen Ethyl Alcohol SARS-CoV-2 (PCR) 11/11/20 09:43 WBC RBC Hgb Hct MCV MCH MCHC RDW Plt Count Neut % (Auto) Lymph % (Auto) [place] % (Auto) Eos % (Auto) Baso % (Auto) Neut # (Auto) Lymph # (Auto) [place] # (Auto) Eos # (Auto) Baso # (Auto) Sodium Potassium Chloride Carbon Dioxide BUN Creatinine Estimated GFR BUN/Creatinine Ratio Glucose Lactate Calcium Total Bilirubin AST ALT Alkaline Phosphatase Ammonia Total Creatine Kinase CK-MB (CK-2) CK-MB (CK-2) Rel Index Troponin I Total Protein Albumin Globulin Albumin/Globulin Ratio Procalcitonin TSH Urine Color Urine Appearance Urine pH Ur Specific [place] Urine Protein Urine Glucose (UA) Urine Ketones Urine Occult Blood Urine Nitrate Urine Bilirubin Ur Bilirubin Confirm Urine Urobilinogen Ur Leukocyte Esterase Urine RBC Urine WBC Ur Squamous Epith Cells Urine Bacteria Hyaline Casts Ur Culture Indicated? Salicylates U Opiates 300ng/mL cut Ur Oxycodone Screen Urine Methadone Screen Acetaminophen Ur Barbiturates Screen U Tricyclic Antidepress Ur Phencyclidine Scrn Ur Amphetamines Screen U Methamphetamines Scrn Ur MDMA Scrn (Ecstasy) U Benzodiazepines Scrn [place] Urine Cocaine Screen U Marijuana (THC) Screen Ethyl Alcohol SARS-CoV-2 (PCR) Negative Assessment & Plan Assessment & Plan narrative: This is a 60 year old female with PMH of psychiatric disorders (Bipolar +/- schizophrenia with anxiety/PTSD) admitted for an elevated lithium level. 1. [place] Toxicity with acute metabolic encephalopathy. - unclear baseline but she is mildly confused currently. more likely etiology lithium toxicity. Unclear if she had recently taken any medications and I suspect she was not accurately taking medications previously. No signs or symptoms of stroke currently, will hold off on MRI but consider if no further improvement. May also represent some manic component given recent severe lack of sleep. - she feels back close to her usual self, but lithium elevated still at 2.0, continue to follow until <1.5 and symptomatically improved. - continue IV fluids - elevated creatinine at 1.49 improving with IV fluids. 2. Bipolar disorder - will hold home medications for now. will ask psychiatry for assistance in resuming home medications given recent ? Manic episode and medication resumption. She will also need to likely establish care in the area after moving from [place] to [place]. 3. Elevated BP without a diagnosis of hypertension - will continue to monitor. 4. Hypothyroidism - TSH within normal limits, continue home medications 5. Elevated creatinine - 1.49 on admission labs, improved to 1.21 on repeat. Will continue to follow and continue IV fluids. Probable BECKY but no known baseline. Code: Full, surrogate decision maker is the patient's son. Dispo: Admit as inpatient Consults: will ask for psychiatry Quality VTE Deep Vein Thrombosis/Pulmonary Embolism Present on Admission: No MIPS - Admit I confirm the patient?s Advance Care Plan is present, Code status is documented, Surrogate decision maker is in patient?s record [If Yes, STOP here]: Yes
[2020-11-11 14:49] LABS: Lithium 1.9 mmol/L (0.6-1.2)
--- NOTE | 2020-11-11 17:14 | P.CONS_ITS ---
History of Present Illness Consult details Date Patient Seen: 11/11/20 Time Patient Seen: 16:45 Chief complaint: Stopped lithium, disorganized thoughts Reason for consult: Psychiatric medication management Requesting provider: Azael Pascual Narrative: REFERRAL INFORMATION This is the latest of many psychiatric evaluation for this 60-year-old female referred for consultation after the patient was admitted from the emergency department with a lithium level of 2.1. RECORDS REVIEW The patient?s referral documents, medical records and intake questionnaire were reviewed as part of this evaluation. In addition, I phoned the patient's psychiatrist on [place], Brenda Matamoros MD ([phone]) and I also spoke with the patient's sister Augie ([phone]) and was able to obtain significant lateral information. CHIEF COMPLAINT ?I feel confused? HISTORY OF PRESENT ILLNESS The patient has a long history of significant psychiatric issues that date back decades to late adolescents and early adulthood. The patient carries a provisional diagnosis of bipolar disorder but also has fairly severe psychotic symptoms as well as difficulty with maintaining appropriate social interactions that may indicate a possible contribution of schizophrenia or schizoaffective disorder. In any case, the patient has been treated with numerous psychiatric medications over the years and lived in [facility] in the [facility] where she was born and raised for many years. After the patient's mother , she moved up to [place] about 4 years ago and has been cared for by her sister who lives on [place]. Initially the patient lives with her sister but then that became untenable and difficult so her sister moved her into her own apartment and occasionally brings her food or groceries. The patient apparently has a history of poor compliance with her medication regimen. Dr. Gamboa has been attempting to address that by dispensing the patient's medications 1 week at a time but will notice when she follows up and observes her pill sorter that the patient will have random medications taken from random days and does not appear to be taking them effectively or consistently. She appears to prefer the sedating medications fairly selectively and will not take what may be more therapeutic medications. The patient's sister notes that she calls her children frequently, sometimes multiple times per day. When her children had not heard from her in several days, they began to get worried, contacted the patient's sister, who also attempted to contact the patient and was unsuccessful. She called a local kiln drawer's deputies to do a welfare check and they found the apartment to be filthy, trashed, and disorganized. They also found the patient to be hallucinating and mentally disorganized show she was eventually brought [facility] for evaluation. In the ED, the patient was found to have a lithium level of 2.1 and was admitted for lithium intoxication. In my initial contact with the patient, she appeared to be somewhat disorganized and had difficulty providing a coherent narrative. I had originally but this down to lithium intoxication, but after discussing the patient's situation with her sister and psychiatrist on [place], this may be close to her baseline. The sister noted that patient is not compliant with her medications as well and often ?does her own thing. ? She states that her behavior has been bizarre in the past but only in last 6 months have hallucinations started to occur. The patient's next door neighbor appears to have been helping to take care of her and she to noted that she had not heard from the patient resulting in her contacting people for help and for admission. The patient has a son who has schizophrenia and he was also apparently living on [place] for appeared of time but became physically abusive and was sent back to [place]. The patient's psychiatrist provided me with a list of the patient's at-home medications which I have provided below. When I attempt to clarify information with the patient she is still unable to provide any sort of coherent logical narrative regarding her psychiatric history other than what I have described above. However, she denies any current suicidal or homicidal ideation, intent, or plan. She does note a recent history of labile mood but denies hallucinations, delusions, or ideas of reference. However, she does court feeling mentally disorganized and clearly suffers from significant levels of thought disorder. PAST PSYCHIATRIC HISTORY - Diagnoses: Bipolar disorder, possible schizoaffective disorder - Inpatient: Apparently never in inpatient - Outpatient: Long history of outpatient treatment both in [facility] and on [place] - Suicide Attempts: No known suicide attempts PREVIOUS PSYCHIATRIC MEDICATION TRIALS Has been treated with numerous other psychiatric medications. CURRENT PSYCHOTROPIC MEDICATIONS [place] 600 mg p.o. q.day Risperdal 1 mg p.o. q.a.m. and 2 mg p.o. q.h.s. Venlafaxine 75 mg p.o. q.a.m. Amitriptyline 75 mg p.o. q.h.s. Hydroxyzine 25-50 mg p.o. q.i.d. Clonazepam tapering dose 0.25 mg p.o. q.a.m. and 0.5 mg p.o. q.p.m. Other medications noted by Dr. Matamoros Famotidine 20 mg p.o. b.i.d. Soma 350 mg p.o. t.i.d. Cetirizine 10 mg p.o. q.day Levothyroxine 112 micro g p.o. q.a.m. Naproxen 250 mg p.o. b.i.d. as needed for pain Propranolol 20 mg p.o. q.day Sumatriptan 50 mg p.o. as needed for migraines FAMILY HISTORY - Maternal: Unknown - Paternal: None none - Siblings: None now SUBSTANCE USE HISTORY - Tobacco: The patient does not smoke. - Alcohol: The patient does not drink. No history of abuse. - Drugs: The patient does not currently use drugs, however she does have a his tory drug use many years ago during her youth. DEVELOPMENTAL AND SOCIAL HISTORY - Family Constellation/Environment: Patient was born and raised in the [facility]. Childhood was apparently relatively unremarkable. - Childhood Trauma: The patient denied any history of physical or sexual abuse, and has no history of witnessing violence as a child. - Developmental milestones: The patient reached normal developmental milestones. - Education: The patient was an adequate student in school and graduated from high school. She may have attended college but this is unclear - Employment: Has worked for a period of time at various [employer] in [facility] - Relationships: Has had boyfriends in the past and has 4 children from 2 different fathers. - Current Living: Currently lives on [place] in an apartment on her own. - Support: Disability income - Legal: No current legal difficulties. Meds Home Medications and Allergies Home Medications Medication Instructions Recorded Confirmed Type carisoprodol 250 mg tablet (Soma) 350 mg PO TID 07/11/19 11/11/20 History clonazepam 1 mg tablet (Klonopin) 0.25 mg PO QPM 07/11/19 11/11/20 History levothyroxine 25 mcg capsule 112 mcg PO DAILY 07/11/19 11/11/20 History amitriptyline 75 mg tablet 75 mg PO BEDTIME 11/11/20 11/11/20 History clonazepam 0.125 mg disintegrating 0.125 mg PO QAM 11/11/20 11/11/20 History tablet hydroxyzine HCl 25 mg tablet 50 mg PO Q4HR PRN 11/11/20 11/11/20 History lithium carbonate 300 mg 600 mg PO BEDTIME 11/11/20 11/11/20 History tablet,extended release omeprazole 40 mg capsule,delayed 40 mg PO DAILY 11/11/20 11/11/20 History release risperidone 1 mg tablet 1 mg PO QAM 11/11/20 11/11/20 History risperidone 1 mg tablet 2 mg PO BEDTIME 11/11/20 11/11/20 History simvastatin 40 mg tablet 40 mg PO QPM 11/11/20 11/11/20 History venlafaxine 75 mg tablet,extended 75 mg PO DAILY 11/11/20 11/11/20 History release 24 hr Allergies Allergy/AdvReac Type Severity Reaction Status Date / Time No Known Drug Allergies Allergy Unverified 07/11/19 10:05 Exam Vital Signs (past 8 hours): - 11/11/20 11:45 11/11/20 14:16 11/11/20 15:16 Temperature 98.7 F 97.1 F L Pulse Rate 92 H Respiratory Rate 20 20 Blood Pressure 149/59 H 111/75 Pulse Oximetry 99 99 92 11/11/20 15:26 Temperature 97.2 F L Pulse Rate 95 H Respiratory Rate 18 Blood Pressure 126/79 Pulse Oximetry 93 Oxygen Delivery Method Room Air Oxygen Flow Rate 0 Narrative Exam Narrative: MENTAL STATUS EXAM * Appearance: The patient is a moderately obese female seen lying in her hospital bed wearing hospital pj's. * Grooming: Adequately dressed and groomed for being in the hospital * Behavior: [Calm and cooperative with the evaluation] * Gait: Not tested * Speech: [Normal rate, volume, and clay] * Mood: ?I am doing better.? * Affect: [Pleasant, smiling, generally euthymic] [Congruent with content, normal range and reactivity] * Thought Process: Somewhat circumstantial and frequently tangential, but can be linear and logical if given simple questions requiring simple answers. * Thought Content: Denies suicidal or homicidal ideation, intent, or plan. Patient has difficulty with tracking thoughts and appears to have difficulty maintaining a logical train of thought. Patient denies any current hallucinations, delusions, or ideas of reference and does not appear to be responding to internal stimuli. * Attention: [Attentive to interview] * Orientation: Generally oriented to person place approximate time and circumstance. * Memory: [Intact for interview, not formally tested] * Insight: Poor by history * Judgment: Poor by history Objective Labs Result Diagrams: 11/12/20 03:50 11/12/20 03:50 Labs: Laboratory Results - last 24 hr 11/10/20 11/10/20 11/10/20 20:05 20:05 20:05 WBC 12.2 H RBC 4.34 Hgb 12.7 Hct 38.8 MCV 89.4 MCH 29.4 MCHC 32.9 RDW 14.3 Plt Count 502 H Neut % (Auto) 83.6 H Lymph % (Auto) 9.0 L Rice % (Auto) 5.7 Eos % (Auto) 1.4 L Baso % (Auto) 0.3 Neut # (Auto) 02488 H Lymph # (Auto) 1100 Rice # (Auto) 700 Eos # (Auto) 200 Baso # (Auto) 0 Sodium 135 L Potassium 3.8 Chloride 104 Carbon Dioxide 21 L BUN 12 Creatinine 1.49 H Estimated GFR 35.7 L BUN/Creatinine Ratio 8.1 Glucose 124 H Lactate 0.8 Calcium 10.6 H Total Bilirubin 0.4 AST 18 ALT 11 Alkaline Phosphatase 105 Ammonia Total Creatine Kinase 47 CK-MB (CK-2) TNP CK-MB (CK-2) Rel Index TNP Troponin I < 0.012 Total Protein 7.8 Albumin 4.4 Globulin 3.4 Albumin/Globulin Ratio 1.3 Procalcitonin 0.11 TSH Urine Color Urine Appearance Urine pH Ur Specific [place] Urine Protein Urine Glucose (UA) Urine Ketones Urine Occult Blood Urine Nitrate Urine Bilirubin Ur Bilirubin Confirm Urine Urobilinogen Ur Leukocyte Esterase Urine RBC Urine WBC Ur Squamous Epith Cells Urine Bacteria Hyaline Casts Ur Culture Indicated? Salicylates < 1.0 U Opiates 300ng/mL cut Ur Oxycodone Screen Urine Methadone Screen Acetaminophen < 10 L Ur Barbiturates Screen U Tricyclic Antidepress Ur Phencyclidine Scrn Ur Amphetamines Screen U Methamphetamines Scrn Ur MDMA Scrn (Ecstasy) U Benzodiazepines Scrn [place] Urine Cocaine Screen U Marijuana (THC) Screen Ethyl Alcohol < 10 SARS-CoV-2 (PCR) 11/10/20 11/10/20 11/10/20 20:05 20:05 20:05 WBC RBC Hgb Hct MCV MCH MCHC RDW Plt Count Neut % (Auto) Lymph % (Auto) Rice % (Auto) Eos % (Auto) Baso % (Auto) Neut # (Auto) Lymph # (Auto) Rice # (Auto) Eos # (Auto) Baso # (Auto) Sodium Potassium Chloride Carbon Dioxide BUN Creatinine Estimated GFR BUN/Creatinine Ratio Glucose Lactate Calcium Total Bilirubin AST ALT Alkaline Phosphatase Ammonia < 9 L Total Creatine Kinase CK-MB (CK-2) CK-MB (CK-2) Rel Index Troponin I Total Protein Albumin Globulin Albumin/Globulin Ratio Procalcitonin TSH 2.28 Urine Color Urine Appearance Urine pH Ur Specific [place] Urine Protein Urine Glucose (UA) Urine Ketones Urine Occult Blood Urine Nitrate Urine Bilirubin Ur Bilirubin Confirm Urine Urobilinogen Ur Leukocyte Esterase Urine RBC Urine WBC Ur Squamous Epith Cells Urine Bacteria Hyaline Casts Ur Culture Indicated? Salicylates Cancelled U Opiates 300ng/mL cut Ur Oxycodone Screen Urine Methadone Screen Acetaminophen Cancelled Ur Barbiturates Screen U Tricyclic Antidepress Ur Phencyclidine Scrn Ur Amphetamines Screen U Methamphetamines Scrn Ur MDMA Scrn (Ecstasy) U Benzodiazepines Scrn [place] 2.1 H* Urine Cocaine Screen U Marijuana (THC) Screen Ethyl Alcohol SARS-CoV-2 (PCR) 11/10/20 11/11/20 11/11/20 23:00 02:56 02:56 WBC RBC Hgb Hct MCV MCH MCHC RDW Plt Count Neut % (Auto) Lymph % (Auto) Rice % (Auto) Eos % (Auto) Baso % (Auto) Neut # (Auto) Lymph # (Auto) Rice # (Auto) Eos # (Auto) Baso # (Auto) Sodium Potassium Chloride Carbon Dioxide BUN Creatinine Estimated GFR BUN/Creatinine Ratio Glucose Lactate Calcium Total Bilirubin AST ALT Alkaline Phosphatase Ammonia Total Creatine Kinase CK-MB (CK-2) CK-MB (CK-2) Rel Index Troponin I Total Protein Albumin Globulin Albumin/Globulin Ratio Procalcitonin TSH Urine Color Yellow Urine Appearance Clear Urine pH 6.5 Ur Specific [place] 1.020 Urine Protein 1+ H Urine Glucose (UA) Negative Urine Ketones 1+ H Urine Occult Blood Negative Urine Nitrate Negative Urine Bilirubin 2+ H Ur Bilirubin Confirm Negative Urine Urobilinogen 0.2 Ur Leukocyte Esterase 1+ H Urine RBC None seen Urine WBC 1-5/hpf Ur Squamous Epith Cells 5-10 /hpf H Urine Bacteria Few (2-10) H Hyaline Casts 10-30/lpf Ur Culture Indicated? Cult not indicated Salicylates U Opiates 300ng/mL cut Negative Ur Oxycodone Screen Negative Urine Methadone Screen Negative Acetaminophen Ur Barbiturates Screen Negative U Tricyclic Antidepress Positive H Ur Phencyclidine Scrn Negative Ur Amphetamines Screen Negative U Methamphetamines Scrn Negative Ur MDMA Scrn (Ecstasy) Negative U Benzodiazepines Scrn Negative [place] 2.1 H* Urine Cocaine Screen Negative U Marijuana (THC) Screen Negative Ethyl Alcohol SARS-CoV-2 (PCR) 11/11/20 11/11/20 11/11/20 03:00 03:00 08:22 WBC RBC Hgb Hct MCV MCH MCHC RDW Plt Count Neut % (Auto) Lymph % (Auto) Rice % (Auto) Eos % (Auto) Baso % (Auto) Neut # (Auto) Lymph # (Auto) Rice # (Auto) Eos # (Auto) Baso # (Auto) Sodium 137 Potassium 3.5 Chloride 105 Carbon Dioxide 22 BUN 12 Creatinine 1.21 H Estimated GFR 45.4 L BUN/Creatinine Ratio 9.9 Glucose 106 Lactate Calcium 9.8 Total Bilirubin AST ALT Alkaline Phosphatase Ammonia Total Creatine Kinase CK-MB (CK-2) CK-MB (CK-2) Rel Index Troponin I Total Protein Albumin Globulin Albumin/Globulin Ratio Procalcitonin TSH Urine Color Urine Appearance Urine pH Ur Specific [place] Urine Protein Urine Glucose (UA) Urine Ketones Urine Occult Blood Urine Nitrate Urine Bilirubin Ur Bilirubin Confirm Urine Urobilinogen Ur Leukocyte Esterase Urine RBC Urine WBC Ur Squamous Epith Cells Urine Bacteria Hyaline Casts Ur Culture Indicated? Salicylates U Opiates 300ng/mL cut Ur Oxycodone Screen Urine Methadone Screen Acetaminophen Ur Barbiturates Screen U Tricyclic Antidepress Ur Phencyclidine Scrn Ur Amphetamines Screen U Methamphetamines Scrn Ur MDMA Scrn (Ecstasy) U Benzodiazepines Scrn [place] 2.0 H* 2.0 H* Urine Cocaine Screen U Marijuana (THC) Screen Ethyl Alcohol SARS-CoV-2 (PCR) 11/11/20 11/11/20 09:43 13:50 WBC RBC Hgb Hct MCV MCH MCHC RDW Plt Count Neut % (Auto) Lymph % (Auto) Rice % (Auto) Eos % (Auto) Baso % (Auto) Neut # (Auto) Lymph # (Auto) Rice # (Auto) Eos # (Auto) Baso # (Auto) Sodium Potassium Chloride Carbon Dioxide BUN Creatinine Estimated GFR BUN/Creatinine Ratio Glucose Lactate Calcium Total Bilirubin AST ALT Alkaline Phosphatase Ammonia Total Creatine Kinase CK-MB (CK-2) CK-MB (CK-2) Rel Index Troponin I Total Protein Albumin Globulin Albumin/Globulin Ratio Procalcitonin TSH Urine Color Urine Appearance Urine pH Ur Specific [place] Urine Protein Urine Glucose (UA) Urine Ketones Urine Occult Blood Urine Nitrate Urine Bilirubin Ur Bilirubin Confirm Urine Urobilinogen Ur Leukocyte Esterase Urine RBC Urine WBC Ur Squamous Epith Cells Urine Bacteria Hyaline Casts Ur Culture Indicated? Salicylates U Opiates 300ng/mL cut Ur Oxycodone Screen Urine Methadone Screen Acetaminophen Ur Barbiturates Screen U Tricyclic Antidepress Ur Phencyclidine Scrn Ur Amphetamines Screen U Methamphetamines Scrn Ur MDMA Scrn (Ecstasy) U Benzodiazepines Scrn [place] 1.9 H* Urine Cocaine Screen U Marijuana (THC) Screen Ethyl Alcohol SARS-CoV-2 (PCR) Negative Assessment & Plan Assessment and plan (1) Elevated lithium level: Status: Acute (2) Bipolar disease, chronic: Status: Acute Assessment & Plan narrative: ASSESSMENT/MEDICAL DECISION MAKING Brionna Phan is a 60-year-old female with a long history of bipolar disorder and possibly other psychiatric issues related to it. In the last several months, the patient has exhibited worsening and more disorganized behavior as well as the onset of hallucinations. She has had difficulty managing her own medications and apparently inadvertently took an overdose of lithium in the context of worsening of manic symptoms and was brought to the emergency department for evaluation. With a lithium level of 2.1 she is clearly toxic. Although she has started to normaliz, her mental status is still quite confused and this may be close to her baseline. At this point, given the collateral history from the patient's sister and her psychiatrist on [place], it appears clear that the patient is having difficulty caring for herself in managing basic tasks such as ADLs and being able to maintain an apartment. More importantly, she appears to be unable to manage her own medications and has been taking them somewhat randomly to the point that she overdosed on relatively low daily dose of lithium resulting in her hospitalization. RECOMMENDATIONS 1. Will continue to follow up with the patient to clarify her history and assist with management. 2. Continue hydration until lithium levels return to normal. 3. Should patient become acutely agitated recommend using risperidone 1-2 mg p.o. b.i.d. 4. Will assist in restarting lithium when toxic levels cleared. 5. Recommend social Work be involved for placement. 6. Recommend patient be admitted to a psychiatric inpatient setting following her medical clearance here for further evaluation, treatment, and stabilization on appropriate medications. Time Spent With Patient Time with patient: Greater than 35 minutes
[2020-11-11] MEDS: ATORVASTATIN 20 MG TABLET PO (20:41)
--- NOTE | 2020-11-11 20:45 | PC.NURSE ---
Pt watching TV most shift. Lungs clear, SpO2 96% RA Pt denies any discomfort @ this time IVF of NS @ 125cc/hr infusing via puimp w/o incidence. Call light w/in reach, bed alarm on forf pt safety. Continue w/plan of care.
[2020-11-12] VITALS (8 sets, daily range): BP systolic 117–131; BP diastolic 66–81; PULSE 76–107; RESP 17–18; TEMP 36–36.9; O2SAT 95–97
--- NOTE | 2020-11-12 03:40 | PM.CALLCOV.1 ---
Call Coverage Note Note Date of Patient Contact: 11/12/20 Time of Patient Contact: 03:41 Narrative of Care Provided: 0330: Woke up with rigors, I am not feeling well. She appeared to be twitching. Requested labs come up early and draw her am labs. Ordered for ativan 0.25 mg IV x 1.
[2020-11-12 04:06] LABS: Add Manual Diff / Slide Review YES; Hematocrit 33.7 % (36-46); Hemoglobin 10.9 g/dL (12.0-16.0); Mean Corpuscular HGB Conc 32.3 % (30-36); Mean Corpuscular Hemoglobin 28.9 PG (26-34); Mean Corpuscular Volume 89.6 fL (80-100); Platelet Count 416 X10^3/uL (150-400); Red Blood Cell Count 3.76 X10^6/uL (4.0-5.2); Red Cell Distribution Width 14.3 % (11.6-14.8); White Blood Cell Count 12.9 X10^3/uL (4.5-11.0)
[2020-11-12 04:10] LABS: BUN Creatinine Ratio 15.2 (6-22); Blood Urea Nitrogen 14 mg/dL (7-17); Carbon Dioxide 22 mmol/L (22-32); Chloride 109 mmol/L (98-107); Estimated Glomerular Filt Rate > 60.0 mL/min (>60); Glucose 108 mg/dL (80-110); HEMOLYSIS < 15 (0-50); Magnesium 1.7 mg/dL (1.6-2.3); Potassium 3.4 mmol/L (3.4-5.1); Sodium 136 mmol/L (137-145)
--- NOTE | 2020-11-12 04:12 | PC.NURSE ---
0335 Woke up to used the bathroom, then she C/O nausea. Offered her some Zofran but she declined states i had that before but it made me sick. Also noted that she's shivering & very pale skin tone. Checked her CBG 107, no C/O CP & dyspnea, RA sat. 96%. ELIA Ortiz notified ordered to draw 0500 lab & called lab. for early lab draws. Pt. also reported & states I'm very nervous & I asked her what is she afraid of she said nervous about living. Will monitor.
--- NOTE | 2020-11-12 04:20 | PC.NURSE ---
Re-assessed pt. she reported I'm feeling better & I don't think I need any medicine right now. Will continue plan of care & monitor.
[2020-11-12 04:29] LABS: Lithium 1.7 mmol/L (0.6-1.2)
[2020-11-12 04:45] LABS: Neutrophils Absolute Manual 8127 /uL (3000-5900); RBC Morphology Normal Morphology; Total Cells Counted 100
[2020-11-12] MEDS: PANTOPRAZOLE DR 40 MG TABLET PO (05:35)
[2020-11-12] MEDS: LEVOTHYROXINE 112 MCG TABLET PO (05:35)
[2020-11-12] MEDS: ACETAMINOPHEN 325 MG TABLET 650 MG PO (06:02)
[2020-11-12] MEDS: ENOXAPARIN 40 MG/0.4 ML SYRINGE SUBCUT (09:34)
[2020-11-12] MEDS: SODIUM CHLORIDE 0.9% 1,000 ML 125 ML IV (09:34)
[2020-11-12] MEDS: SODIUM CHLORIDE 0.9% FLUSH 10 ML IV ×2 (09:34→20:25)
--- NOTE | 2020-11-12 14:10 | PT.IIE ---
Current Diagnoses Bipolar disorder, unspecified (11/11/20) Other specified abnormal findings of blood chemistry (11/11/20) Surgical History (Last Updated 07/21/19 @ 21:12 by Helen Gallegos) Anesthesia Medical History (Last Reviewed 11/11/20 @ 17:17 by Chetan Randall MD) Acne Anemia (~2015) Anxiety and depression Bipolar disease, chronic Carpal tunnel syndrome Chronic back pain Fibromyalgia (~1993) Headache Hypothyroidism Low grade squamous intraepithelial lesion (LGSIL) on cervical Pap smear Migraines Plantar warts Shoulder pain (~2017) Tremor Physical Therapy Inpatient Evaluation/Re-Eval M1 PT/OT-IP Prior Functional Status Start: 11/12/20 15:38 Freq: NEEDED Status: Active Protocol: Document 11/12/20 14:10 AB (Rec: 11/12/20 15:51 AB [id number]) Medical Review Prior Functional Status Medical History Reviewed Yes Communication able to make needs known but with confusion Mobility and Gait pt stated that she is independent with all mobilities and ambulation without AD Prior Functional Level (Other details) pt stated that she was still able to drive Social History Household Members none Living Arrangements Apartment/Condo Number of Floors (Floors) One Floor Number of Stairs To Enter/Railing? no steps to enter Home Environment Standard Height Toilet,Tub/ Shower M2 PT-IP Current Condition Start: 11/12/20 15:38 Freq: NEEDED Status: Active Protocol: Document 11/12/20 14:10 AB (Rec: 11/12/20 15:51 AB [id number]) Physical Therapy Current Condition Current Condition Evaluation Date 11/12/20 Treatment Diagnosis [place] Toxicity w/ acute metabolic encephalopathy; difficulty in walking Onset Date 11/11/20 Precautions Other Precautions falls M3 PT-IP Subjective Start: 11/12/20 15:38 Freq: NEEDED Status: Active Protocol: Document 11/12/20 14:10 AB (Rec: 11/12/20 15:51 AB [id number]) Subjective Physical Therapy Visit Type Type Initial Evaluation Visit Start Time 14:10 Visit Stop Time 14:40 Total Visit Minutes 30 Number of EDITOR HOUSE ORGAN Visits 0 M4 PT-IP Mobility and Gait Start: 11/12/20 15:38 Freq: NEEDED Status: Active Protocol: Document 11/12/20 14:10 AB (Rec: 11/12/20 15:51 AB [id number]) PT-Bed Mobility Assessment Sit to Supine Sit to Supine Standby Assistance PT-Transfer Assessment Sit to and From Stand Sit to and from Stand Contact Guard Assistance,1 Person Assistance,Use of Upper Extremities Equipment Transfer Assistive Device None,Gait Belt Orthotic/Prosthetic Devices or Brace: No Transfers Transfer Destination Bed Transfer Technique ambulated Transfer Ability Level of Assist Contact Guard Assistance,1 Person Assistance,Use of Upper Extremities Comments Mobility Comments checked with pt and pt using the toilet and NAC in room. NAC assisting pt with toileting needs. pt with confusion. PT assisted. pt completed sit to stand from the toilet CGA using grab bar while NAC assisted with hygiene care. pt cued for upright posture. presents with decrease activity tolerance needed to sit down a few time to complete toileting care. pt ambulated out of the toilet to the bed CGA and cues. presents with ataxic gait. pt requires max cues and redirection. assisted with brief care and gown change. completed sit to stand from EOB CGA. instructed to ambulate to the sink and completed CGA without AD and cues. pt was able to maintain standing CGA and completed handwashing. pt stated that she needs to go back to bed and is feeling really tired. pt ambulated to the bed CGA. completed sit to supine SBA. positioned pt in bed. call light and table placed within reach. Gait Assessment Gait Gait Assistance Required: Contact Guard Assist Distance (Feet) 10 Able to Maintain Weight Bearing Status Yes During Gait Assistive Devices Assistive Device None Gait Deviations General Gait Pattern Ataxic,Decreased Stride Length ,Decreased Feet Clearance,Step -to Gait Factors Limiting Gait Function Factors Limiting Gait Function Decreased Activity Tolerance, Decreased Strength,Difficulty Following Directions,Poor Balance,Poor Safety Awareness PT-Balance Assessment Sitting Balance and Reactions Static Sitting Balance Ability Good Dynamic Sitting Balance Ability Good Standing Balance and Reactions Static Standing Balance Ability Fair Dynamic Standing Balance Ability Fair Device Used without AD M5 PT-IP Objective Assessments Start: 11/12/20 15:38 Freq: NEEDED Status: Active Protocol: Document 11/12/20 14:10 AB (Rec: 11/12/20 15:51 AB [email or web address]) Orientation Orientation/Cognition Level of Alertness Confusional State Orientation Name Safety Awareness Decreased Safety Awareness Memory Description Short Term Impaired Gross Range of Motion Lower Extremity ROM Assessment Within Functional Limits Strength Comments Strength Comments unable to complete MMT Muscle Tone Muscle Tone WNL Yes M6 PT-IP Treatment Start: 11/12/20 15:38 Freq: NEEDED Status: Active Protocol: Document 11/12/20 14:10 AB (Rec: 11/12/20 15:51 AB [id number]) Physical Therapy Treatment Education Education Provided Safety M7 PT-IP Assessment and Plan Start: 11/12/20 15:38 Freq: NEEDED Status: Active Protocol: Document 11/12/20 14:10 AB (Rec: 11/12/20 15:51 AB [email or web address]) PT Summary Assessment and Plan Potential Rehabilitation Potential Fair Status of Condition at Evaluation Evolving Summary Impairments Pain,ROM,Strength,Balance, Coordination,Sensation,Tone, Cognition,Bed Mobility, Transfers,Gait,Activity Tolerance Assessment Summary Pt requiring CGA with mobility but presents with decrease activity tolerance requiring rest breaks in between tasks. able to ambulate in room ~ 10 ft and needs to sit back to rest. presents with very unsteady ataxic gait with (+) tremor/shaking. At this time , pt will require 24/7 assist available and may need to go to SNF. will continue to assess progress. Goals Bed Mobility Goal Independent Transfer Goal Independent,Front Wheeled Walker Gait Goal Independent,Front Wheel Walker Gait Distance 200 Other Goals improve ambulation without AD 200 ft I Days to Meet Goals 10 Frequency of Treatment Frequency Of Treatment Once a Day Treatment Plan Physical Therapy Treatment Plan Bed Mobility Training,Transfer Training,Gait Training, Therapeutic Exercise,Balance Retraining,Discharge Planning, Hot or Cold Pack,Neuromuscular Re-ed,Coordination Retraining Precautions Other Precautions falls Recommendations To Nursing Amount of Assist Needed 1 Person Assist Discharge Recommendations PT Discharge Recommendations SNF Rehab Equipment Needed for Home Before FWW if pt is not safe without Discharge AD and if going home Transportation Needs at Discharge Wheelchair/Cabulance
--- NOTE | 2020-11-12 16:32 | CM.SWNOTE ---
CHILD WELFARE SOCIAL WORKER Note Spoke w/Dr morgan this afternoon; will attempt inpatient psychiatric hospitalization once medically cleared. Dr Jones agrees. Patient agreeable to this option. Following closely. JW
--- NOTE | 2020-11-12 16:52 | P.PN_ITS ---
Subjective Subjective Date Patient Seen: 11/12/20 Time Patient Seen: 08:00 Interval history: Today she was having no specific complaints. She was feeling less confused. Exam Vital Signs (past 8 hours): - 11/12/20 09:48 11/12/20 14:00 11/12/20 15:30 Temperature 98.4 F 98.2 F 97.7 F Pulse Rate 84 78 84 Respiratory Rate 18 17 18 Blood Pressure 117/78 120/68 123/72 Pulse Oximetry 96 97 Oxygen Delivery Method Room Air Oxygen Flow Rate 0 Narrative Exam Narrative: GENERAL APPEARANCE: no acute distress. LUNGS: clear bilaterally with no wheezes, rhonchi, or rales. CARDIOVASCULAR: regular rate and rhythm without any murmurs, gallops, rubs. ABDOMEN: Soft and nontender with normal bowel sounds. NEUROLOGIC: Alert and oriented. No focal deficits. Apprears slow and is mildly confused. Psych: Odd affect but states she feels to be her usual self now. No current SI or HI, no hallucinations currently. Objective Labs Result Diagrams: 11/12/20 03:50 11/12/20 03:50 Labs: Laboratory Results - last 24 hr 11/12/20 11/12/20 11/12/20 03:50 03:50 03:50 WBC 12.9 H RBC 3.76 L Hgb 10.9 L Hct 33.7 L MCV 89.6 MCH 28.9 MCHC 32.3 RDW 14.3 Plt Count 416 H Neut % (Auto) Not Reportable Lymph % (Auto) Not Reportable [place] % (Auto) Not Reportable Eos % (Auto) Not Reportable Baso % (Auto) Not Reportable Lymph # (Auto) Not Reportable [place] # (Auto) Not Reportable Baso # (Auto) Not Reportable Total Counted 100 Seg Neutrophils % 59.0 Band Neutrophils % 4.0 Lymphocytes % (Manual) 25.0 Monocytes % (Manual) 5.0 Eosinophils % (Manual) 7.0 H Neutrophils # (Manual) 8127 H RBC Morphology Normal morphology Sodium 136 L Potassium 3.4 Chloride 109 H Carbon Dioxide 22 BUN 14 Creatinine 0.92 Estimated GFR > 60.0 BUN/Creatinine Ratio 15.2 Glucose 108 Calcium 9.0 Magnesium 1.7 [place] 1.7 [facility] Medical History Acne Anemia (~2015) Anxiety and depression Bipolar disease, chronic Carpal tunnel syndrome Chronic back pain Fibromyalgia (~1993) Headache Hypothyroidism Low grade squamous intraepithelial lesion (LGSIL) on cervical Pap smear Migraines Plantar warts Shoulder pain (~2017) Tremor Surgical History (Updated 07/21/19 @ 21:12 by Helen Gallegos) Anesthesia H/O hand surgery History of section Family History Father CAD (coronary artery disease) Mother Uterine cancer Sister No problems noted. Sister No problems noted. Daughter No problems noted. Daughter No problems noted. Son No problems noted. Social History household members: none Smoking Status: Smoker, status unknown alcohol intake: never Assessment & Plan Assessment & Plan narrative: 1 year old female with PMH of psychiatric disorders (Bipolar +/- schizophrenia with anxiety/PTSD) admitted for an elevated lithium level. 1. [place] Toxicity with acute metabolic encephalopathy. - unclear baseline but she is mildly confused currently. more likely etiology lithium toxicity. Unclear if she had recently taken any medications and I s uspect she was not accurately taking medications previously. No signs or symptoms of stroke currently, will hold off on MRI but consider if no further improvement. May also represent some manic component given recent severe lack of sleep. - she feels back close to her usual self, but lithium elevated still at 1.7, continue to follow until normal - continue IV fluids - elevated creatinine at 1.49 improving with IV fluids. 2. Bipolar disorder - will hold home medications for now. will ask psychiatry for assistance in resuming home medications given recent ? Manic episode and medication resumpt ion. She will also need to likely establish care in the area after moving from [place] to [place]. - per psychiatry plan for inpatient psych once medically stable 3. Elevated BP without a diagnosis of hypertension - will continue to monitor. 4. Hypothyroidism - TSH within normal limits, continue home medications 5. BECKY, resolved - 1.49 on admission labs, improved to 0.92 on repeat. Will continue to follow and continue IV fluids. Probable BECKY but no known baseline. Code: Full, surrogate decision maker is the patient's son. Dispo: Admit as inpatient Consults: appreciate psychiatry involvement Quality VTE Deep Vein Thrombosis/Pulmonary Embolism Present on Admission: No
[2020-11-12] MEDS: ATORVASTATIN 20 MG TABLET PO (20:25)
[2020-11-13] VITALS (8 sets, daily range): BP systolic 117–142; BP diastolic 60–90; PULSE 74–93; RESP 16–18; TEMP 36–36.6; O2SAT 96–100
[2020-11-13] MEDS: SODIUM CHLORIDE 0.9% 1,000 ML 125 ML IV (03:51)
[2020-11-13] MEDS: SODIUM CHLORIDE 0.9% FLUSH 10 ML IV ×3 (05:09→21:37)
[2020-11-13 06:18] LABS: Eosinophils Absolute Auto 1000 /uL (0-450); Lymphocytes Absolute Auto 2200 /uL (1100-4500)
[2020-11-13] MEDS: ACETAMINOPHEN 325 MG TABLET 650 MG PO (06:18)
[2020-11-13] MEDS: PANTOPRAZOLE DR 40 MG TABLET PO (06:18)
[2020-11-13] MEDS: LEVOTHYROXINE 112 MCG TABLET PO (06:18)
[2020-11-13 06:27] LABS: Add Manual Diff / Slide Review NO; Basophils Absolute Auto 100 /uL (0-100); Basophils Percent Auto 0.6 % (0-2); Eosinophils Percent Auto 8.6 % (2-4); Lymphocytes Percent Auto 19.3 % (25-40); Mean Corpuscular HGB Conc 32.4 % (30-36); Mean Corpuscular Volume 89.4 fL (80-100); Monocytes Absolute Auto 1200 /uL (0-900); Monocytes Percent Auto 10.4 % (3-14); Neutrophils Absolute Auto 7100 /uL (1500-7000); Neutrophils Percent Auto 61.1 % (50-75); Platelet Count 396 X10^3/uL (150-400); Red Cell Distribution Width 14.5 % (11.6-14.8); White Blood Cell Count 11.6 X10^3/uL (4.5-11.0)
[2020-11-13 06:31] LABS: BUN Creatinine Ratio 14.1 (6-22); Blood Urea Nitrogen 10 mg/dL (7-17); Calcium 9.2 mg/dL (8.4-10.2); Carbon Dioxide 18 mmol/L (22-32); Chloride 113 mmol/L (98-107); Estimated Glomerular Filt Rate > 60.0 mL/min (>60); Glucose 108 mg/dL (80-110); HEMOLYSIS 21 (0-50); Magnesium 1.6 mg/dL (1.6-2.3); Potassium 3.5 mmol/L (3.4-5.1); Sodium 137 mmol/L (137-145)
[2020-11-13 06:36] LABS: Lithium 1.2 mmol/L (0.6-1.2)
[2020-11-13] MEDS: ENOXAPARIN 40 MG/0.4 ML SYRINGE SUBCUT (08:26)
--- NOTE | 2020-11-13 11:42 | PT-IP ANOTE ---
Pt refused stating she just had shower and walked in [place] with nursing. RN confirmed. Will check back with pt later today.
--- NOTE | 2020-11-13 13:13 | CM.SWNOTE ---
BAND TACKER Note This BAND TACKER consulted to assist w/placement efforts for this 60 yo female, arrives to the ED w/lithium toxicity/med mismanagement in the setting of increased symptoms of melquiades. Family confirms an increase in patient's hallucinations, disorganized thoughts and bizarre behaviors over a 6 month period. Met w/patient this morning, patient is very pleasant, thought/speech changes quickly from linear to non linear. Discussed today's DCP goals and patient is agreeable to transfer to an inpatient psychiatric hospital for continued med management and psychiatric care. LM for patient's sister Augie ([phone]) and w/Stacy w/ [facility] (who knows patient well) P# [phone] Spoke w/Dr Jones who agrees w/psychiatrist Dr Randall that inpatient psychiatric placement is appropriate for patient, to continue stabilization and review medication management. Patient admits to ongoing hallucinations which patient had not been experiencing prior to recent, increasing symptoms of melquiades. Proceeded w/placement efforts, summary below: [place]- No beds [facility] beds, faxed [place]- No beds [place] [facility] beds tomorrow, faxed [place] beds, faxed [place] [facility] beds, faxed Following closely, efforts to secure psych placement continue, updated Dr Jones JW
--- NOTE | 2020-11-13 15:07 | PM.PN.1 ---
Subjective Subjective Date Patient Seen: 11/13/20 Time Patient Seen: 08:00 Interval history: Today she feels well. She is cheerful and feels steadier on her feet. She has started noticing visual hallucinations, a person jumping up and down with a watering [place]. She also notices round circles. Exam Vital Signs (past 8 hours): - 11/13/20 08:00 11/13/20 09:25 11/13/20 12:00 Temperature 96.9 F L 96.8 F L Pulse Rate 91 H 89 Respiratory Rate 18 16 Blood Pressure 142/90 H 139/60 Pulse Oximetry 96 96 96 Oxygen Delivery Method Room Air Oxygen Flow Rate 0 Narrative Exam Narrative: GENERAL APPEARANCE: no acute distress. LUNGS: clear bilaterally with no wheezes, rhonchi, or rales. CARDIOVASCULAR: regular rate and rhythm without any murmurs, gallops, rubs. ABDOMEN: Soft and nontender with normal bowel sounds. NEUROLOGIC: Alert and oriented. No focal deficits. No longer slow or confused Psych: Odd affect but states she feels to be her usual self now. No current SI or HI, she has visual hallucinations as noted. Objective Labs Result Diagrams: 11/13/20 06:05 11/13/20 06:05 Labs: Laboratory Results - last 24 hr 11/13/20 11/13/20 11/13/20 06:05 06:05 06:05 WBC 11.6 H RBC 3.80 L Hgb 11.0 L Hct 34.0 L MCV 89.4 MCH 29.0 MCHC 32.4 RDW 14.5 Plt Count 396 Neut % (Auto) 61.1 Lymph % (Auto) 19.3 L [place] % (Auto) 10.4 Eos % (Auto) 8.6 H Baso % (Auto) 0.6 Neut # (Auto) 7100 H Lymph # (Auto) 2200 [place] # (Auto) 1200 H Eos # (Auto) 1000 H Baso # (Auto) 100 Sodium 137 Potassium 3.5 Chloride 113 H Carbon Dioxide 18 L BUN 10 Creatinine 0.71 Estimated GFR > 60.0 BUN/Creatinine Ratio 14.1 Glucose 108 Calcium 9.2 Magnesium 1.6 [place] 1.2 [facility] Medical History Acne Anemia (~2015) Anxiety and depression Bipolar disease, chronic Carpal tunnel syndrome Chronic back pain Fibromyalgia (~1993) Headache Hypothyroidism Low grade squamous intraepithelial lesion (LGSIL) on cervical Pap smear Migraines Plantar warts Shoulder pain (~2017) Tremor Surgical History (Updated 07/21/19 @ 21:12 by Helen Gallegos) Anesthesia H/O hand surgery History of section Family History Father CAD (coronary artery disease) Mother Uterine cancer Sister No problems noted. Sister No problems noted. Daughter No problems noted. Daughter No problems noted. Son No problems noted. Social History household members: none Smoking Status: Smoker, status unknown alcohol intake: never Assessment & Plan Assessment & Plan narrative: 60 year old female with PMH of psychiatric disorders (Bipolar +/- schizophrenia with anxiety/PTSD) admitted for an elevated lithium level. 1. [place] Toxicity with acute metabolic encephalopathy, resolved - unclear baseline but she appears no longer confused today. She is conversant, pleasant, feels much better. She also is now having visual hallucinations. No agitation. May also represent some manic component given recent severe lack of sleep. - she feels back close to her usual self, and lithium level now 1.2, continue to follow daily - stop IV fluids - elevated creatinine at 1.49 improved with IV fluids. 2. Bipolar disorder - will hold home medications for now. will ask psychiatry for assistance in resuming home medications given recent ? Manic episode and medication resumption. She will also need to likely establish care in the area after moving from [place] to [place]. - per psychiatry plan for inpatient psych once medically stable, per their note will help redose lithium once level stable 3. Elevated BP without a diagnosis of hypertension - will continue to monitor. 4. Hypothyroidism - TSH within normal limits, continue home medications 5. BECKY, resolved - 1.49 on admission labs, improved to 0.71 on repeat - etiology is lithium toxicity Code: Full, surrogate decision maker is the patient's son. Dispo: Admit as inpatient Consults: appreciate psychiatry involvement Quality VTE Deep Vein Thrombosis/Pulmonary Embolism Present on Admission: No
--- NOTE | 2020-11-13 15:10 | PT.IPTN ---
Current Diagnoses Bipolar disorder, unspecified (11/11/20) Other specified abnormal findings of blood chemistry (11/11/20) Physical Therapy Treatment Note M2 PT-IP Current Condition Start: 11/12/20 15:38 Freq: NEEDED Status: Active Protocol: Document 11/12/20 14:10 AB (Rec: 11/12/20 15:51 AB [id number]) Physical Therapy Current Condition Current Condition Evaluation Date 11/12/20 Treatment Diagnosis [place] Toxicity w/ acute metabolic encephalopathy; difficulty in walking Onset Date 11/11/20 Precautions Other Precautions falls M3 PT-IP Subjective Start: 11/12/20 15:38 Freq: NEEDED Status: Active Protocol: Document 11/13/20 15:10 AB (Rec: 11/13/20 16:37 AB [id number]) Subjective Physical Therapy Visit Type Type Treatment Note Visit Start Time 15:10 Visit Stop Time 15:30 Total Visit Minutes 20 Number of ROUTE RELIEF DRIVER Visits 0 Physical Therapy Visit Comments Patient Comments pt agreed to do PT; continues to have confusion and currently has hallucinations ( stating and point to a male and a small boy in the room); acknowledged pt's hallucination and reoriented to current situation and pt accepted that she is hallucinating but continues to require redirections Therapy Pain Assessment Pain When Pain Assessed During Mobility Pain Present Pain Present Pain Reported Location Back Scale Used pain scale not stated Pain Management Techniques Distraction,Modification of Treatment,Re-positioning, Timing of Activity with Medications M4 PT-IP Mobility and Gait Start: 11/12/20 15:38 Freq: NEEDED Status: Active Protocol: Document 11/13/20 15:10 AB (Rec: 11/13/20 16:37 AB [id number]) PT-Bed Mobility Assessment Supine to Sit Supine to Sit Standby Assistance,Head of Bed Elevated Sit to Supine Sit to Supine Standby Assistance,Head of Bed Elevated PT-Transfer Assessment Sit to and From Stand Sit to and from Stand Standby Assistance Equipment Transfer Assistive Device None,Gait Belt,Front Wheeled Walker Orthotic/Prosthetic Devices or Brace: No Comments Mobility Comments pt agreed to do PT. completed supine to sit SBA with HOB elevated. ambulated in room using FWW SBA and cues ~ 35 ft . c/o back pain and stated that she needs to sit down. pt stating the there is a male in the room standing and looking at her. confirmed to pt that there is no other person. Pt stated and admitted that she has hallucinations. reoriented pt to task at hand. ambulated again in her room without AD sBA to CGA ~ 30 ft but stated that her back is hurting and has to sit down. pt rested. again talked about a male and a small boy in the room. reassured pt again that there are no other people and redirected to task. ambulated in room again without AD 25 ft SBA to CGA. educated pt on upright posture. pt requested to go back to bed. completed sit to supine SBA. positioned in bed. call light and table placed within reach . informed nurse regarding hallucinations and mobility level. informed that pt c/o back pain limiting mobility. nurse stated that they can give her pain meds next time prior to PT. Gait Assessment Gait Gait Assistance Required: Standby Assistance,Contact Guard Assist Distance (Feet) 35 Able to Maintain Weight Bearing Status Yes During Gait Assistive Devices Assistive Device None,Gait Belt,Front Wheeled Walker Orthotic/Prosthetic Devices or Brace: No Gait Deviations General Gait Pattern Antalgic,Decreased Stride Length,Decreased Feet Clearance Factors Limiting Gait Function Factors Limiting Gait Function Decreased Activity Tolerance, Decreased Strength,Difficulty Following Directions,Pain,Poor Balance,Poor Safety Awareness Comments Gait Comments pls refer to mobility section for details M5 PT-IP Objective Assessments Start: 11/12/20 15:38 Freq: NEEDED Status: Active Protocol: Document 11/12/20 14:10 AB (Rec: 11/12/20 15:51 AB [id number]) Orientation Orientation/Cognition Level of Alertness Confusional State Orientation Name Safety Awareness Decreased Safety Awareness Memory Description Short Term Impaired Gross Range of Motion Lower Extremity ROM Assessment Within Functional Limits Strength Comments Strength Comments unable to complete MMT Muscle Tone Muscle Tone WNL Yes M6 PT-IP Treatment Start: 11/12/20 15:38 Freq: NEEDED Status: Active Protocol: Document 11/13/20 15:10 AB (Rec: 11/13/20 16:37 AB [id number]) Physical Therapy Treatment Education Education Provided Safety M7 PT-IP Assessment and Plan Start: 11/12/20 15:38 Freq: NEEDED Status: Active Protocol: Document 11/13/20 15:10 AB (Rec: 11/13/20 16:37 AB [id number]) PT Summary Assessment and Plan Potential Rehabilitation Potential Good Summary Impairments Pain,ROM,Strength,Balance, Coordination,Sensation,Tone, Cognition,Bed Mobility, Transfers,Gait,Activity Tolerance Progress Towards Goals Slow Progress due to Pain,Slow Progress due to Activity Tolerance Assessment Summary pt requiring SBA to CGA with ambulation using FWW/without AD but unable to tolerate much ambulation due to c/o back pain. pt also seems to have more hallucinations today compared to yesterday. will continue PT to improve mobility level. Per case management's note: plan is for pt to go an inpatient psychiatric facility for medication management. nurse stated that pt has to be as independent as possible to be able to go to inpt psychiatric facility. Goals Bed Mobility Goal Independent Transfer Goal Independent,Front Wheeled Walker Gait Goal Independent,Front Wheel Walker Gait Distance 200 Other Goals improve ambulation without AD 200 ft I Days to Meet Goals 10 Frequency of Treatment Frequency Of Treatment Once a Day Treatment Plan Physical Therapy Treatment Plan Bed Mobility Training,Transfer Training,Gait Training, Therapeutic Exercise,Balance Retraining,Discharge Planning, Hot or Cold Pack,Neuromuscular Re-ed,Coordination Retraining Precautions Other Precautions falls Recommendations To Nursing Amount of Assist Needed 1 Person Assist Discharge Recommendations PT Discharge Recommendations SNF Rehab Equipment Needed for Home Before FWW if pt is not safe without Discharge AD and if going home Transportation Needs at Discharge Wheelchair/Cabulance
--- NOTE | 2020-11-13 19:36 | PC.NURSE ---
RAJAN shift note. pt AO, cooperative and pleasant but experiencing several hallucinations. Midline to left upper arm, Poor appetite- pt refused dinner because it smells like chemicals so we ordered her a salad to which she says she doesn't like the dressing. We will remind pt to use call light and to stay in bed or the chair but found pt many times up and ambulating in room with bed alarm activated. PT worked with pt at start of shift SBA in hallways.
[2020-11-13] MEDS: ATORVASTATIN 20 MG TABLET PO (21:37)
[2020-11-14] VITALS (7 sets, daily range): BP systolic 114–142; BP diastolic 70–90; PULSE 79–99; RESP 18–22; TEMP 35.6–36.7; O2SAT 93–98
[2020-11-14] MEDS: PANTOPRAZOLE DR 40 MG TABLET PO (05:33)
[2020-11-14] MEDS: LEVOTHYROXINE 112 MCG TABLET PO (05:33)
[2020-11-14 05:50] LABS: Add Manual Diff / Slide Review NO; Basophils Absolute Auto 100 /uL (0-100); Basophils Percent Auto 0.8 % (0-2); Eosinophils Absolute Auto 700 /uL (0-450); Eosinophils Percent Auto 9.2 % (2-4); Hematocrit 32.3 % (36-46); Hemoglobin 10.8 g/dL (12.0-16.0); Lymphocytes Absolute Auto 1500 /uL (1100-4500); Lymphocytes Percent Auto 19.2 % (25-40); Mean Corpuscular HGB Conc 33.3 % (30-36); Mean Corpuscular Hemoglobin 29.9 PG (26-34); Mean Corpuscular Volume 89.7 fL (80-100); Monocytes Absolute Auto 800 /uL (0-900); Monocytes Percent Auto 9.9 % (3-14); Neutrophils Absolute Auto 4700 /uL (1500-7000); Neutrophils Percent Auto 60.9 % (50-75); Platelet Count 368 X10^3/uL (150-400); Red Cell Distribution Width 14.3 % (11.6-14.8); White Blood Cell Count 7.6 X10^3/uL (4.5-11.0)
[2020-11-14 05:59] LABS: Lithium 0.9 mmol/L (0.6-1.2)
[2020-11-14 06:01] LABS: Blood Urea Nitrogen 5 mg/dL (7-17); Calcium 9.3 mg/dL (8.4-10.2); Carbon Dioxide 21 mmol/L (22-32); Chloride 111 mmol/L (98-107); Estimated Glomerular Filt Rate > 60.0 mL/min (>60); Glucose 106 mg/dL (80-110); HEMOLYSIS < 15 (0-50); Magnesium 1.7 mg/dL (1.6-2.3); Potassium 3.3 mmol/L (3.4-5.1); Sodium 139 mmol/L (137-145)
[2020-11-14] MEDS: ENOXAPARIN 40 MG/0.4 ML SYRINGE SUBCUT (09:02)
[2020-11-14] MEDS: SODIUM CHLORIDE 0.9% FLUSH 10 ML IV (09:03)
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
--- NOTE | 2020-11-14 11:49 | CM.SWNOTE ---
WIRE ROLLER/DCP Note Spoke w/son Alex Phan this morning P# [phone], who explains that patient calls him multiple times daily, but he will answer approx. two times monthly. Patient has two sons ([place]) and two daughters, Mily Perry P# [phone] lives in [place] and speaks w/her mom often, dtr Grisel Perry P# [phone] speaks to patient almost daily lives in [place]. Alex does not know about DPOA Call from sister Augie P# [phone], Augie is currently DPOA for her sister, this WIRE ROLLER requested this ppk be faxed ezio. There is no one designated to assist w/patient's finances, patient has SSD income deposited on a card monthly which pays for her approx $250 in rent. Augie has been keeping a physical distance from her sister for years because her presence in patient's life seems to be a trigger. Augie attempts to assist w/patient's needs from a distance, she stays in contact w/[employer] hard[employer] worker and w/patient's neighbors. Augie says she, Stacy ([facility]), psychiatrist and Dr Thomas all agree patient would benefit from increased monitoring at home. Augie unsure if Stacy has completed a [email or web address] oral w/patient (?) Patient had [employer] cgs approx a year ago but fired her cg and has not had one since. Patient has her own apt which Augie is having professionally cleaned at this time.Patient has been struggling to care for self; laundry is never done, maggots were found in the kitchen, clothes have been found soaked in urine, patient eats vegan for the first 3 days every month, the rest of the month lives on pop tarts, Gatorade and candy and piles of pills have been found in dresser drawers. Augie does not suspect any drug or alcohol use other than marijuana. Augie explains she raised patient, their mom also suffered from mental illness- likely manic depressive/Bipolar Disorder. Augie has been concerned about her sister's stability for years but patient's manic symptoms have certainly increased over the last month. Augie hopeful that patient will get transferred to an inpatient psych unit before return home. This WIRE ROLLER and Augie reviewed potential barriers to psych placement and discussed the likelihood that patient may need to DC back home to her apt w/ongoing outpatient supports.. if inpatient psych is not secured. Augie states understanding. Re: inpatient psych bed options today; attempted [facility], [facility], [facility], [facility], [facility], [facility] and , all state no beds available today. Updated Dr Graves. Efforts are expected to continue Monday to secure inpatient psychiatric stay. If nothing can be secured by Monday, it's likely patient will be reassessed by psychiatry and potentially discharged home w/outpatient management- PCP Dr Thomas, Brenda Matamoros MD ([phone]), [facility], [facility] (?) and family. WIRE ROLLER team will continue follow closely. JOSEPH Harris
--- NOTE | 2020-11-14 11:56 | OT.IPNOTE ---
Pt declined OT services this AM stating that she had just returned to bed. This specifications writer followed up later and pt was sleeping. Then P.T. notified this specifications writer that pt again declined OT services when P.T. offered to have OT see patient while she was up. Will hold and this time and see as schedule permits.
--- NOTE | 2020-11-14 12:26 | PC.NURSE ---
Patient is Alert but disoriented at times, she makes comments that do not make sense. She has been pleasant and cooperative with care, walked with physical therapy in the room. Patient gets around in her room independently and does not like the bed alarm on, we are putting it on as much as she will although us. Resting comfortably. Refused breakfast and states that she would like to eat her carrots after a bit.
--- NOTE | 2020-11-14 14:54 | PM.PN.1 ---
Subjective Subjective Interval history: Patient reports continued hallucinations. She notes that they are not scary, but they persist. Exam Vital Signs (past 8 hours): - 11/14/20 08:00 11/14/20 12:00 Temperature 96.1 F L 97 F L Pulse Rate 99 H 90 Respiratory Rate 20 20 Blood Pressure 122/79 120/80 Pulse Oximetry 93 94 Oxygen Delivery Method Room Air Oxygen Flow Rate 0 Narrative Exam Narrative: Pleasant female resting comfortably in no obvious distress Resp Other: Lungs clear to auscultation Cardio Other: Cardiac exam: Regular rate and rhythm normal S1-S2 with a 2/6 systolic ejection murmur GI Other: Abdomen: Soft nontender nondistended Objective Labs Result Diagrams: 11/14/20 05:30 11/14/20 05:30 Labs: Laboratory Results - last 24 hr 11/14/20 11/14/20 11/14/20 05:30 05:30 05:30 WBC 7.6 RBC 3.60 L Hgb 10.8 L Hct 32.3 L MCV 89.7 MCH 29.9 MCHC 33.3 RDW 14.3 Plt Count 368 Neut % (Auto) 60.9 Lymph % (Auto) 19.2 L [place] % (Auto) 9.9 Eos % (Auto) 9.2 H Baso % (Auto) 0.8 Neut # (Auto) 4700 Lymph # (Auto) 1500 [place] # (Auto) 800 Eos # (Auto) 700 H Baso # (Auto) 100 Sodium 139 Potassium 3.3 L Chloride 111 H Carbon Dioxide 21 L BUN 5 L Creatinine 0.71 Estimated GFR > 60.0 BUN/Creatinine Ratio 7.0 Glucose 106 Calcium 9.3 Magnesium 1.7 [place] 0.9 [facility] Medical History Acne Anemia (~2015) Anxiety and depression Bipolar disease, chronic Carpal tunnel syndrome Chronic back pain Fibromyalgia (~1993) Headache Hypothyroidism Low grade squamous intraepithelial lesion (LGSIL) on cervical Pap smear Migraines Plantar warts Shoulder pain (~2017) Tremor Surgical History (Updated 07/21/19 @ 21:12 by Helen Gallegos) Anesthesia H/O hand surgery History of section Family History Father CAD (coronary artery disease) Mother Uterine cancer Sister No problems noted. Sister No problems noted. Daughter No problems noted. Daughter No problems noted. Son No problems noted. Social History household members: none Smoking Status: Smoker, status unknown alcohol intake: never Assessment & Plan Assessment & Plan narrative: [place] Toxicity with acute metabolic encephalopathy, resolved - unclear baseline but she appears no longer confused today. She is conversant, pleasant, feels much better. She also is now having visual hallucinations. No agitation. May also represent some manic component given recent severe lack of sleep. - she feels back close to her usual self, and lithium level now 1.2, continue to follow daily - stop IV fluids - elevated creatinine at 1.49 improved with IV fluids. -IV fluids discontinued, midline IV out -patient making significant improvement, lithium toxicity now resolved 2. Bipolar disorder - will hold home medications for now. will ask psychiatry for assistance in resuming home medications given recent ? Manic episode and medication resumption. She will also need to likely establish care in the area after moving from [place] to [place]. - per psychiatry plan for inpatient psych once medically stable, per their note will help redose lithium once level stable -currently awaiting acute inpatient psychiatric bed given her ongoing hallucination 3. Elevated BP without a diagnosis of hypertension - will continue to monitor. -blood pressure improved 4. Hypothyroidism - TSH within normal limits, continue home medications 5. BECKY, resolved - 1.49 on admission labs, improved to 0.71 on repeat - etiology is lithium toxicity -acute kidney injury resolved Code: Full, surrogate decision maker is the patient's son. Dispo: Admit as inpatient Consults: appreciate psychiatry involvement Quality VTE Deep Vein Thrombosis/Pulmonary Embolism Present on Admission: No
[2020-11-14] MEDS: POTASSIUM CHLORIDE 20 MEQ TAB 40 MEQ PO (16:00)
--- NOTE | 2020-11-14 17:28 | PC.NURSE ---
Addendum entered by Brielle Hernandez R.N. 11/14/20 21:16: Pt had uneventful evening. Some disorientation continues Denies discomfort. Independent in room Call light w/in reach, bed alarm on for pt safety. Continue w/plan of care. Original Note: Pt watching TV Denies any issues at this time. Alert/some confusion noted as to day/time Call light w/in reach, bed alarm on for pt safety.
[2020-11-14] MEDS: ATORVASTATIN 20 MG TABLET PO (20:07)
[2020-11-15 04:36] VITALS: BP 105/60; PULSE 76; RESP 20; TEMP 37.1; O2SAT 98
[2020-11-15] MEDS: PANTOPRAZOLE DR 40 MG TABLET PO (05:53)
[2020-11-15] MEDS: LEVOTHYROXINE 112 MCG TABLET PO (05:53)
--- NOTE | 2020-11-15 08:24 | PC.NURSE ---
Assess- Patient is alert and oriented x2, she does say things that do not make sense, up in room independently. Bed alarm only on sometimes, staff watching patient closely. O agitation or confusion, resting in bed and warm blanket given.
[2020-11-15 09:05] VITALS: BP 119/69; PULSE 70; RESP 22; TEMP 36.8; O2SAT 99
[2020-11-15] MEDS: ENOXAPARIN 40 MG/0.4 ML SYRINGE SUBCUT (11:04)
--- NOTE | 2020-11-15 11:50 | PC.NURSE ---
At change of shift patient was awake and having an increase in hallucinations and confusion. Patient kept stating that there were children with skateboards that keep coming and whispering that they just want to see whats in there. When RN acknowledged that the patient believes she is seeing them but the RN did not see them, the patient stated oh thats good, so they aren't there. Patient denied any pain or discomfort but kept asking why the police were not here to get the children. Patient was reminded of the call light and it was left within reach. Patient was resting in bed and did not have any other complaints at this time.
[2020-11-15 12:30] VITALS: BP 131/74; PULSE 90; RESP 24; TEMP 37.4; O2SAT 95
--- NOTE | 2020-11-15 13:43 | PM.PN.1 ---
Subjective Subjective Interval history: Patient is a 60-year-old female admitted to the hospital for lithium toxicity. Her lithium levels have improved. Renal function has improved. The patient does admit to some hallucinations, however they are not frightening to her. She is curious about her discharge plan and reports that her sister is involved in her care. Exam Vital Signs (past 8 hours): - 11/15/20 09:05 11/15/20 12:30 Temperature 98.2 F 99.4 F Pulse Rate 70 90 Respiratory Rate 22 24 Blood Pressure 119/69 131/74 Pulse Oximetry 99 95 Oxygen Delivery Method Room Air Oxygen Flow Rate 0 Narrative Exam Narrative: Pleasant female resting comfortably in no obvious distress Resp Other: Lungs: Clear to auscultation Cardio Other: Cardiac exam: Regular rate and rhythm normal S1-S2 GI Other: Abdomen: Soft nontender nondistended Extrem Other: Extremities: No edema Objective Labs Result Diagrams: 11/14/20 05:30 11/14/20 05:30 [facility] Medical History Acne Anemia (~2015) Anxiety and depression Bipolar disease, chronic Carpal tunnel syndrome Chronic back pain Fibromyalgia (~1993) Headache Hypothyroidism Low grade squamous intraepithelial lesion (LGSIL) on cervical Pap smear Migraines Plantar warts Shoulder pain (~2017) Tremor Surgical History (Updated 07/21/19 @ 21:12 by Helen Gallegos) Anesthesia H/O hand surgery History of section Family History Father CAD (coronary artery disease) Mother Uterine cancer Sister No problems noted. Sister No problems noted. Daughter No problems noted. Daughter No problems noted. Son No problems noted. Social History household members: none Smoking Status: Smoker, status unknown alcohol intake: never Assessment & Plan Assessment & Plan narrative: [place] Toxicity with acute metabolic encephalopathy, resolved - unclear baseline but she appears no longer confused today. She is conversant, pleasant, feels much better. She also is now having visual hallucinations. No agitation. May also represent some manic component given recent severe lack of sleep. - she feels back close to her usual self, and lithium level now 1.2, continue to follow daily - stop IV fluids - elevated creatinine at 1.49 improved with IV fluids. -IV fluids discontinued, midline IV out -patient making significant improvement, lithium toxicity now resolved -patient with hypokalemia yesterday, will repeat labs in the morning and reassess 2. Bipolar disorder - will hold home medications for now. will ask psychiatry for assistance in resuming home medications given recent ? Manic episode and medication resumption. She will also need to likely establish care in the area after moving from [place] to [place]. - per psychiatry plan for inpatient psych once medically stable, per their note will help redose lithium once level stable -currently awaiting acute inpatient psychiatric bed given her ongoing hallucination -suggest inpatient psychiatric evaluation tomorrow to determine whether the patient will need inpatient treatment versus outpatient therapy -given her episode of lithium toxicity consideration of alternative treatment is warranted, will defer to Psychiatry 3. Elevated BP without a diagnosis of hypertension - will continue to monitor. -blood pressure improved 4. Hypothyroidism - TSH within normal limits, continue home medications 5. BECKY, resolved - 1.49 on admission labs, improved to 0.71 on repeat - etiology is lithium toxicity -acute kidney injury resolved Code: Full, surrogate decision maker is the patient's son. Dispo: Admit as inpatient Consults: appreciate psychiatry involvement Quality VTE Deep Vein Thrombosis/Pulmonary Embolism Present on Admission: No
--- NOTE | 2020-11-15 14:26 | CM.SWNOTE ---
Addendum entered by Jud Lorenz 11/15/20 16:05: Patient seen by PT today. Patient ambulated in hallway Independently. KJS Original Note: ENGINEERING SPECIALIST TECHNICIAN Note: Reviewed chart. Per provider in AM rounds if psychiatric placement not secured today, provider will have reassessment by psychiatry on Monday11-16-20 for d/c home with outpatient follow up. ENGINEERING SPECIALIST TECHNICIAN placed call to [facility] this AM, spoke with Vince she reports that they never got any information on this patient therefore, re-faxed records for review. Received return call from Vince at [facility] after records reviewed and she reports that patient does not meet inpatient criteria for [facility]. P: Pending. Anticipate home if medially/mentally stable tomorrow. CM team to coordinate outpatient follow up and possible home health if indicated. JOSEPH Pratt
--- NOTE | 2020-11-15 15:29 | PT.IPTN ---
Current Diagnoses Bipolar disorder, unspecified (11/11/20) Other specified abnormal findings of blood chemistry (11/11/20) Physical Therapy Treatment Note M2 PT-IP Current Condition Start: 11/12/20 15:38 Freq: NEEDED Status: Active Protocol: Document 11/12/20 14:10 AB (Rec: 11/12/20 15:51 AB [id number]) Physical Therapy Current Condition Current Condition Evaluation Date 11/12/20 Treatment Diagnosis [place] Toxicity w/ acute metabolic encephalopathy; difficulty in walking Onset Date 11/11/20 Precautions Other Precautions falls M3 PT-IP Subjective Start: 11/12/20 15:38 Freq: NEEDED Status: Active Protocol: Document 11/15/20 15:29 DLM (Rec: 11/15/20 17:54 DLM [id number]) Subjective Physical Therapy Visit Type Type Treatment Note Visit Start Time 15:10 Visit Stop Time 15:29 Total Visit Minutes 19 Number of [place]ACE[place] FORMER Visits 0 Physical Therapy Visit Comments Patient Comments She agrees to work with therapy. She reports feeling tired today and napping a lot. Therapy Pain Assessment Pain When Pain Assessed During Mobility Pain Present Pain Present Denied Pain M4 PT-IP Mobility and Gait Start: 11/12/20 15:38 Freq: NEEDED Status: Active Protocol: Document 11/15/20 15:29 DLM (Rec: 11/15/20 17:54 DLM [id number]) PT-Bed Mobility Assessment Rolling Level of Assist Independent Supine to Sit Supine to Sit Independent Sit to Supine Sit to Supine Independent Scooting Scooting to Edge of Bed Independent Scooting Up and Down in Bed Independent PT-Transfer Assessment Sit to and From Stand Sit to and from Stand Independent Equipment Transfer Assistive Device None Transfers Transfer Destination Bed Transfer Technique Stand Step Pivot Transfer Ability Level of Assist Independent,Use of Upper Extremities Comments Mobility Comments Pt does not feel she needs a gait belt and declines to use it. Gait Assessment Gait Gait Assistance Required: Independent Distance (Feet) 300 Assistive Devices Assistive Device None Gait Deviations General Gait Pattern Within Normal Limits Stair Climbing Assessment Evaluation Level of Assist On Stairs Independent Devices Stair Climbing Assistive Devices Left Railing,Right Railing Technique/Endurance Stair Climbing Direction Ascend and Descend Stair Climbing Technique Step Over Step,Step to Step Number of Steps Climbed 3 Stair Climbing Set # Repetitions (reps) 1 Comments Stair Climbing Comments she goes step-over step going up the stairs and step-to going down the stairs PT-Balance Assessment Sitting Balance and Reactions Static Sitting Balance Ability Normal Dynamic Sitting Balance Ability Good Standing Balance and Reactions Static Standing Balance Ability Good Dynamic Standing Balance Ability Good M5 PT-IP Objective Assessments Start: 11/12/20 15:38 Freq: NEEDED Status: Active Protocol: Document 11/15/20 15:29 DLM (Rec: 11/15/20 17:54 [facility] [id number]) Orientation Orientation/Cognition Level of Alertness Alert Orientation Name,Birthday,Date,Situation Language Function Ability No Deficits Noted Safety Awareness Decreased Safety Awareness Memory Description Short Term Impaired Comments She can not tell me where she lives, gets confused that she is currently in [place]. She was worried about a white bag in the parking lot across the street; she believed it had a animal in it. Gross Range of Motion Upper Extremity ROM Assessment Within Functional Limits Lower Extremity ROM Assessment Within Functional Limits Strength Upper Extremity Strength Assessment Within Functional Limits Lower Extremity Strength Assessment Within Functional Limits Coordination Assessment Gross Coordination Gross Coordination WNL Sensation Assessment Comments Sensation Comments no changes reported by pt Muscle Tone Muscle Tone WNL Yes M6 PT-IP Treatment Start: 11/12/20 15:38 Freq: NEEDED Status: Active Protocol: Document 11/15/20 15:29 DLM (Rec: 11/15/20 17:54 [facility] [id number]) Physical Therapy Treatment Education Education Provided Safety M7 PT-IP Assessment and Plan Start: 11/12/20 15:38 Freq: NEEDED Status: Active Protocol: Document 11/15/20 15:29 DLM (Rec: 11/15/20 17:54 [facility] [id number]) PT Summary Assessment and Plan Summary Impairments Cognition Progress Towards Goals Goals Met Assessment Summary Brionna is resting in bed today but agrees to work with physical therapy. She is pleasant and cooperative. She demonstrates independent gait without a device on level surfaces. She is able to go up and down steps with rails. Her mobility is also independent. She continues to present with cognitive impairments. No further skilled physical therapy needed at this time. Will discharge PT. Goals Bed Mobility Goal Independent Transfer Goal Independent,Front Wheeled Walker Gait Goal Independent,Front Wheel Walker Gait Distance 200 Other Goals improve ambulation without AD 200 ft I Days to Meet Goals 10 Frequency of Treatment Frequency Of Treatment Discharge Recommendations To Nursing Amount of Assist Needed Standby Assistance Discharge Recommendations PT Discharge Recommendations Home with Assistance Other Discharge Recommendations needs assist due to cognitive impairments Equipment Needed for Home Before no device needed at this time Discharge Transportation Needs at Discharge Private Vehicle
[2020-11-15 15:48] VITALS: BP 134/71; PULSE 79; RESP 19; TEMP 36.2; O2SAT 94
[2020-11-15 19:51] VITALS: BP 113/49; PULSE 74; RESP 20; TEMP 36.7
[2020-11-15] MEDS: ATORVASTATIN 20 MG TABLET PO (20:31)
--- NOTE | 2020-11-15 22:42 | PC.NURSE ---
VSS. A&Ox3 but has some confusion and hallucinations per patient report. Denies pain. Patient refused to eat her dinner tonight, she said she already ate once today and is trying to loose weight. She slept for most of this shift. Call light within reach, bed low.
[2020-11-15 23:45] VITALS: BP 127/101; PULSE 78; RESP 20; TEMP 36.8; O2SAT 97
[2020-11-16] VITALS (10 sets, daily range): BP systolic 119–137; BP diastolic 53–96; PULSE 65–89; RESP 16–22; TEMP 36.1–36.6; O2SAT 95–99
[2020-11-16] MEDS: PANTOPRAZOLE DR 40 MG TABLET PO (05:52)
[2020-11-16] MEDS: LEVOTHYROXINE 112 MCG TABLET PO (05:52)
[2020-11-16 06:18] LABS: BUN Creatinine Ratio 4.5 (6-22); Blood Urea Nitrogen 3 mg/dL (7-17); Calcium 9.3 mg/dL (8.4-10.2); Carbon Dioxide 26 mmol/L (22-32); Chloride 108 mmol/L (98-107); Estimated Glomerular Filt Rate > 60.0 mL/min (>60); Glucose 109 mg/dL (80-110); HEMOLYSIS < 15 (0-50); Potassium 3.1 mmol/L (3.4-5.1); Sodium 140 mmol/L (137-145)
[2020-11-16] MEDS: ENOXAPARIN 40 MG/0.4 ML SYRINGE SUBCUT (08:47)
[2020-11-16] MEDS: POTASSIUM CHLORIDE 20 MEQ TAB 40 MEQ PO (10:07)
--- NOTE | 2020-11-16 10:20 | OT.IP.EVAL ---
Current Diagnoses Bipolar disorder, unspecified (11/11/20) Other specified abnormal findings of blood chemistry (11/11/20) Past Medical History (Last Reviewed 11/11/20 @ 17:17 by Chetan Randall MD) Acne Anemia (~2015) Anxiety and depression Bipolar disease, chronic Carpal tunnel syndrome Chronic back pain Fibromyalgia (~1993) H/O hand surgery Headache History of section Hypothyroidism Low grade squamous intraepithelial lesion (LGSIL) on cervical Pap smear Migraines Plantar warts Shoulder pain (~2017) Tremor Surgical History (Last Updated 07/21/19 @ 21:12 by Helen Gallegos) Anesthesia H/O hand surgery History of section Occupational Therapy Inpatient Evaluation/Re-Eval M1 PT/OT-IP Prior Functional Status Start: 11/12/20 15:38 Freq: NEEDED Status: Active Protocol: Document 11/16/20 10:27 CGR (Rec: 11/16/20 10:38 CGR [id number]) Medical Review Prior Functional Status Medical History Reviewed Yes Communication able to make needs known but with confusion Mobility and Gait pt stated that she is independent with all mobilities and ambulation without AD Activities of Daily Living and IADL's Pt states that she was IND in all ADLs prior to admit. Prior Functional Level (Other details) pt stated that she was still able to drive but is a questionable historian. Social History Household Members none Living Arrangements Apartment/Condo Number of Floors (Floors) One Floor Home Environment Standard Height Toilet,Tub/ Shower Employment Status Unemployed Additional Social History Comment Pt states that she moved from [place] to [place] but does not know where she lives and can not state when she moved. M1 PT/OT-IP Prior Functional Status Start: 11/14/20 11:55 Freq: NEEDED Status: Active Protocol: Document 11/16/20 10:27 CGR (Rec: 11/16/20 10:38 CGR [id number]) Medical Review Prior Functional Status Medical History Reviewed Yes Communication able to make needs known but with confusion Mobility and Gait pt stated that she is independent with all mobilities and ambulation without AD Activities of Daily Living and IADL's Pt states that she was IND in all ADLs prior to admit. Prior Functional Level (Other details) pt stated that she was still able to drive but is a questionable historian. Social History Household Members none Living Arrangements Apartment/Condo Number of Floors (Floors) One Floor Home Environment Standard Height Toilet,Tub/ Shower Employment Status Unemployed Additional Social History Comment Pt states that she moved from [place] to [place] but does not know where she lives and can not state when she moved. M2 OT-IP Current Condition Start: 11/14/20 11:55 Freq: Status: Active Protocol: Document 11/16/20 10:27 CGR (Rec: 11/16/20 10:38 CGR [id number]) Occupational Therapy Current Condition Current Condition Evaluation Date 11/16/20 Treatment Diagnosis lithium toxicity, acute metabolic encephalopathy, bipolar schizophrenia Diagnosis Onset Date 11/11/20 M3 OT- IP Subjective and Pain Start: 11/14/20 11:55 Freq: Status: Active Protocol: Document 11/16/20 10:27 CGR (Rec: 11/16/20 10:38 CGR [id number]) OT- Subjective Occupational Therapy Visit Type Type Initial Evaluation Visit Start Time 09:57 Visit Stop Time 10:20 Total Visit Minutes 23 Notes Pt sitting up eating breakfast when OT entered. OT Pain Assessment Pain When Pain Assessed At Rest Pain Present Pain Present Denied Pain M4 OT- IP ADL's Start: 11/14/20 11:55 Freq: Status: Active Protocol: Document 11/16/20 10:27 CGR (Rec: 11/16/20 10:38 CGR [id number]) OT [id number] General Evaluation Self-Feeding Ability Independent Comments OT Self-Feeding Comments breakfast, noted minimal shaking of the hand with feeding OT ADL-Grooming General Evaluation Grooming Ability Standby Assistance Comments OT Grooming Comments standing at sink OT ADL-Oral Care Comments Oral Care Comments not performed OT ADL-Dressing General Eval Upper Body Dressing Ability Independent Lower Body Dressing Ability Independent Areas Needing Assistance Underpants/Brief,Pants/Shorts Comments OT Dressing Comments seated EOB and standing OT ADL-Toileting Comments OT Toileting Comments not performed, pt states she just performed OT ADL-Bathing Comments OT Bathing Comments not performed M5 OT- IP IADL's Start: 11/14/20 11:55 Freq: Status: Active Protocol: Document 11/16/20 10:27 CGR (Rec: 11/16/20 10:38 CGR [email or web address]) OT-Instrumental Activities of Daily Living Deficits IADL Deficits Identified Deficits Home Safety Awareness Awareness of Need for Assistance at Home Decreased Awareness Ability to Problem Solve Emergency Unable to Problem Solve Situations Medication Management Medication Management Comments Concerns for pt's ability to perform Money Management Money Management Comments Concerns for pt's ability to perform Meal Preparation Meal Preparation Comments Concerns for pt's ability to perform safely Laundry Machine Tender Laundry Machine Tender Comments Concerns for pt's ability to perform safely Driving Driving Comments Concerns for pt's ability to perform safely M6 OT- IP Functional Cognition Start: 11/14/20 11:55 Freq: Status: Active Protocol: Document 11/16/20 10:27 CGR (Rec: 11/16/20 10:38 CGR [email or web address]) Cognitive Factors Limiting Selfcare Function Cognitive Ability Level of Alertness Alert,Confusional State Patient Orientation Name,Place,Situation Attention Span Ability Unable to Focus,Unable to Sustain Attention Ability to Follow Commands Able to Follow One Step Commands with Increased Time, Able to Follow One Step Commands with Repetition Cognitive Comments Cognitive Assessment Comments Pt demonstrates difficulty focusing on activities, deficits to memory, and generalized confusion. She does seem aware of her mental health situation and states that she knows that she has hallucinations. OT- Vision and Hearing OT- Hearing Assessment OT- Hearing Assessment WFL OT- Vision Assessment Visual Acuity WFL M7 OT- IP Mobility and Balance Start: 11/14/20 11:55 Freq: Status: Active Protocol: Document 11/16/20 10:27 CGR (Rec: 11/16/20 10:38 CGR [email or web address]) OT-Transfer Assessment Sit to and From Stand Sit to and from Stand Independent Transfers Transfer Ability Independent Technique Transfer Destination Bed Transfer Technique Stand Step Pivot Devices Transfer Assistive Devices None OT- Balance Assessment Sitting Balance and Reactions Static Sitting Balance Ability Normal Dynamic Sitting Balance Ability Normal M8 OT- IP Objective Assessments Start: 11/14/20 11:55 Freq: Status: Active Protocol: Document 11/16/20 10:27 CGR (Rec: 11/16/20 10:38 CGR [id number]) OT Gross Range of Motion Upper Extremity Range of Motion Assessment Within Functional Limits OT Strength Upper Extremity Strength Assessment Within Functional Limits OT- Coordination Assessment Upper Extremity Finger to Nose Test Within Functional Limits Finger Tapping Test Within Functional Limits OT-Muscle Tone Assessment Muscle Tone WNL Yes OT Sensation Assessment Edema Edema Absent M9 OT- IP Assessment and Plan Start: 11/14/20 11:55 Freq: Status: Active Protocol: Document 11/16/20 10:27 CGR (Rec: 11/16/20 10:38 CGR [id number]) OT Summary Assessment and Plan Potential Rehabilitation Potential Excellent Analytic Complexity at Evaluation Low Summary OT Impairments Functional Cognition Assessment Summary Pt presents as a low complexity evaluation s/p admit for lithium toxicity. Pt appears to be at her baseline for ADLs and functional mobility. Unknown baseline for cognition. There is concern for pt's ability to care for herself appropriately at home d/t her mental health. Defer mental health care to appropriate provider at this time regarding safety of a discharge home vs facility. Pt physically has the ability to care for herself at home. Frequency of Treatment Frequency Of Treatment Discharge Discharge Recommendations Other Discharge Recommendations Defer to appropriate mental health professional. Pt is physically able to perform self care. Transportation Needs at Discharge Private Vehicle
--- NOTE | 2020-11-16 13:09 | PM.PN.1 ---
Subjective Subjective Date Patient Seen: 11/16/20 Time Patient Seen: 12:45 Interval history: Pt is a 60 yo F with long hx of bipolar disorder and possible schizoaffective disorder who presented with lithium toxicity. Pt has no complaints today and was mystified at how she could have taken too much lithium and become toxic. No complaints of psychosis or manic symptoms at this time. Denies SI/HI, intent or plan. Exam Vital Signs (past 8 hours): - 11/16/20 06:14 11/16/20 08:26 11/16/20 08:50 Temperature 97.8 F 97.6 F Pulse Rate 88 74 Respiratory Rate 22 16 Blood Pressure 124/74 128/69 Pulse Oximetry 96 95 95 11/16/20 11:14 11/16/20 11:57 Temperature 97.1 F L Pulse Rate 82 Respiratory Rate 16 Blood Pressure 120/75 Pulse Oximetry 97 97 Oxygen Delivery Method Room Air Oxygen Flow Rate 0 Narrative Exam Narrative: MENTAL STATUS EXAM Appearance: The patient is a moderately obese female seen lying in her hospital bed wearing hospital pj's. Grooming: Adequately dressed and groomed for being in the hospital Behavior: Calm and cooperative with the evaluation Gait: Not tested Speech: Normal rate, volume, and clay Mood: ?I am feeling a lot better.? Affect: Pleasant, smiling, generally euthymic Congruent with content, normal range and reactivity Thought Process: Linear logical and goal directed. Thought Content: Denies suicidal or homicidal ideation, intent, or plan. No evidence of thought or perceptual disturbance. Attention: Attentive to interview Orientation: Generally oriented to person place approximate time and circumstance. Memory: Intact for interview, not formally tested Insight: Poor Judgment: Poor Objective Labs Result Diagrams: 11/14/20 05:30 11/16/20 05:47 Labs: Laboratory Results - last 24 hr 11/16/20 05:47 Sodium 140 Potassium 3.1 L Chloride 108 H Carbon Dioxide 26 BUN 3 L Creatinine 0.66 Estimated GFR > 60.0 BUN/Creatinine Ratio 4.5 L Glucose 109 Calcium 9.3 PFSH Medical History Acne Anemia (~2015) Anxiety and depression Bipolar disease, chronic Carpal tunnel syndrome Chronic back pain Fibromyalgia (~1993) Headache Hypothyroidism Low grade squamous intraepithelial lesion (LGSIL) on cervical Pap smear Migraines Plantar warts Shoulder pain (~2018) Tremor Surgical History (Updated 07/21/19 @ 21:12 by Helen Gallegos) Anesthesia H/O hand surgery History of section Family History Father CAD (coronary artery disease) Mother Uterine cancer Sister No problems noted. Sister No problems noted. Daughter No problems noted. Daughter No problems noted. Son No problems noted. Social History household members: none Smoking Status: Smoker, status unknown alcohol intake: never Assessment & Plan Assessment and plan (1) Elevated lithium level: Status: Acute (2) Bipolar disease, chronic: Status: Acute Assessment & Plan narrative: ASSESSMENT/MEDICAL DECISION MAKING Brionna Phan is a 60-year-old female with a long history of bipolar disorder and possibly other psychiatric issues related to it. In the last several months, the patient has exhibited worsening and more disorganized behavior as well as the onset of hallucinations. She has had difficulty managing her own medications and apparently inadvertently took an overdose of lithium in the context of worsening of manic symptoms and was brought to the emergency department for evaluation. With last two lithium levels of 1.2 and 0.9, she has normalized and does not appear to have suffered any kidney damage. MSE appears to have returned to her baseline. At this poin, patient is not holdable and has both a place to live and follow up care on [place]. Sister is available to assist with medication management. At this point, given the collateral history from the patient's sister and her psychiatrist on [place], it appears clear that the patient is having difficulty caring for herself in managing basic tasks such as ADLs and being able to maintain an apartment. More importantly, she appears to be unable to manage her own medications and has been taking them somewhat randomly to the point that she overdosed on relatively low daily dose of lithium resulting in her hospitalization. RECOMMENDATIONS 1. Discharge to home when medically clear. 2. Pt admonished to take care when taking her meds, especially Segundo. 3. Pt to follow up as scheduled on Mon with Dr Matamoros, her regular psychiatrist. 4. Recommed discharging pt with her previous medication regimen. Time Spent With Patient Time with patient: less than 15 minutes Quality VTE Deep Vein Thrombosis/Pulmonary Embolism Present on Admission: No
--- NOTE | 2020-11-16 13:24 | PC.NURSE ---
A&OX4, answers questions appropriately; patient sleeping through most of the shift; LS clear; OT in room this morning; d/c pending psych. evaluation later this afternoon. Door open for visibility from nurse station.
--- NOTE | 2020-11-16 14:18 | P.PN_ITS ---
Subjective Subjective Date Patient Seen: 11/16/20 Time Patient Seen: 14:18 Interval history: Patient continues to feel a bit foggy but more alert and almost back to her usual self. Patient not accepted to inpatient psychiatric facility, seen again by psych today, plan for discharge home with outpatient follow up, but unable to arrange transportation today and will plan on tomorrow. Exam Vital Signs (past 8 hours): - 11/16/20 08:26 11/16/20 08:50 11/16/20 11:14 Temperature 97.6 F 97.1 F L Pulse Rate 74 82 Respiratory Rate 16 16 Blood Pressure 128/69 120/75 Pulse Oximetry 95 95 97 11/16/20 11:57 Temperature Pulse Rate Respiratory Rate Blood Pressure Pulse Oximetry 97 Oxygen Delivery Method Room Air Oxygen Flow Rate 0 Narrative Exam Narrative: GENERAL APPEARANCE: no acute distress. LUNGS: clear bilaterally with no wheezes, rhonchi, or rales. CARDIOVASCULAR: regular rate and rhythm without any murmurs, gallops, rubs. ABDOMEN: Soft and nontender with normal bowel sounds. NEUROLOGIC: Alert and oriented. No focal deficits. Apprears slow and is mildly confused. Psych: Odd affect but states she feels to be her usual self now. No current SI or HI, no hallucinations currently. Objective Labs Result Diagrams: 11/14/20 05:30 11/16/20 05:47 Labs: Laboratory Results - last 24 hr 11/16/20 05:47 Sodium 140 Potassium 3.1 L Chloride 108 H Carbon Dioxide 26 BUN 3 L Creatinine 0.66 Estimated GFR > 60.0 BUN/Creatinine Ratio 4.5 L Glucose 109 Calcium 9.3 PFSH Medical History Acne Anemia (~2015) Anxiety and depression Bipolar disease, chronic Carpal tunnel syndrome Chronic back pain Fibromyalgia (~1993) Headache Hypothyroidism Low grade squamous intraepithelial lesion (LGSIL) on cervical Pap smear Migraines Plantar warts Shoulder pain (~2017) Tremor Surgical History (Updated 07/21/19 @ 21:12 by Helen Gallegos) Anesthesia H/O hand surgery History of section Family History Father CAD (coronary artery disease) Mother Uterine cancer Sister No problems noted. Sister No problems noted. Daughter No problems noted. Daughter No problems noted. Son No problems noted. Social History household members: none Smoking Status: Smoker, status unknown alcohol intake: never Assessment & Plan Assessment & Plan narrative: 1. [place] Toxicity with acute metabolic encephalopathy, resolved - unclear baseline but she appears no longer confused today. She is conversant, pleasant, feels much better. She also is now having visual hallucinations. No agitation. May also represent some manic component given recent severe lack of sleep. - she feels back close to her usual self, and lithium level now 1.2. Will now resume home medications per psychiatry. - elevated creatinine at 1.49 improved with IV fluids. -IV fluids discontinued, midline IV out -patient making significant improvement, lithium toxicity now resolved -patient with hypokalemia yesterday, will repeat labs in the morning and reassess 2. Bipolar disorder - will resume home medications now after discussing with psychiatry today, appr eciate Dr. Randall's involvement. Okay for discharge home tomorrow with outpatient psychiatry follow up planned. 3. Elevated BP without a diagnosis of hypertension - will continue to monitor. -blood pressure improved 4. Hypothyroidism - TSH within normal limits, continue home medications 5. BECKY, resolved - 1.49 on admission labs, improved to 0.71 on repeat - etiology is lithium toxicity -acute kidney injury resolved Code: Full, surrogate decision maker is the patient's son. Dispo: Admit as inpatient, plan for discharge home tomorrow. Consults: appreciate psychiatry involvement Quality VTE Deep Vein Thrombosis/Pulmonary Embolism Present on Admission: No
--- NOTE | 2020-11-16 16:34 | CM.DPC ---
DCP Continued: HEAD REFRIGERATION ENGINEER Student met with patient this am at bedside. She was alert but, presented slightly confused appearing to be close to baseline functioning. Patient denied any hallucinations this am but, did remember she had hallucinations yesterday. Patient reported she had some suicidal ideations this morning with no-specific intent or plan. Patient reports this is a normal for her. Patient reported her protective factors are: identified reason to live ?my children?, she said she has supportive neighbors and her sister Augie is helpful, she likes to meditate and take walks. Patient is also open about hallucinations, ?I am glad when other people tell me things aren?t real, it helps.? Patient was able to provide information about mental health care her Psychiatric provider is Brenda Matamoros / on [place] her next appointment is scheduled for 11/18/20 at 11am. Patient also, stated she has a medi-set filled once a week at [facility] on [address]. Spoke with Augie this afternoon she stated she has found marijuana and Xanax during the clean-up of patient?s apartment and continues to feel concern of her sisters ability to care for self. She has faxed a copy of the DPOA and is declining to provide transportation for her sister at time of D/C she said, ?Call Stacy.? Called and left message for Stacy ([facility]) at (cell #). Stacy returned call she is working with the apartment complex to secure clean-up of the apartment to ready for patients return. Stacy is sending a free [place] boarding pass and scheduling the taxi services on [address] for tomorrow afternoon. Dr. Randall is recommending home with outpatient psychiatric follow-up. Called and left a message in afternoon requesting transportation supports be set-up for patient to catch the [id number] to [place] on 11/17/20. PLAN: Anticipate D/C home with transportation support via [facility] and patient to outpatient psychiatry follow-up. CM Team to continue to follow. JOSEPH Pratt, HEAD REFRIGERATION ENGINEER Student
--- NOTE | 2020-11-16 21:27 | PC.NURSE ---
Pt condition remains essentially unchanged. Lungs clear, SpO2 98% RA Pt resting at intervals most evening. Call light w/in reach, bed alarm on for pt safety. Continue w/plan of care.
[2020-11-16] MEDS: risperiDONE 1 MG TABLET 2 MG PO (22:01)
[2020-11-16] MEDS: ATORVASTATIN 20 MG TABLET PO (22:02)
[2020-11-16] MEDS: LITHIUM 300 MG ER TABLET 600 MG PO (22:02)
[2020-11-17 04:54] VITALS: BP 135/76; PULSE 94; RESP 18; TEMP 36.6; O2SAT 97
[2020-11-17] MEDS: LEVOTHYROXINE 112 MCG TABLET PO (06:55)
[2020-11-17] MEDS: PANTOPRAZOLE DR 40 MG TABLET PO (06:55)
[2020-11-17 08:00] VITALS: BP 106/67; PULSE 109; RESP 16; TEMP 36.2; O2SAT 96
--- NOTE | 2020-11-17 08:10 | P.DS_ITS ---
History of Present Illness History of Present Illness Date Patient Seen: 11/17/20 Time Patient Seen: 08:10 Chief complaint: Stopped lithium, disorganized thoughts Narrative: This is a 60 year old female with a PMH of psychiatric disorder (? bipolar schizophrenia) who presented to the emergency room yesterday evening at the recommendation of her mental health provider. She moved to [place] from [place] 10 days ago approximatelely. Since that time she states she has only slept 1 night and had not taken any of her medications. She states she sometimes guesses on her medications and cannot recall at this time exactly which medications she takes. She felt not herself starting ten days ago but is very non-descript about what she was feeling, only stating that she felt not herself. She did have lack of sleep, but also fatigue. She may have halluci nated a dog at one point but this seemed fairly normal to her. She cannot recall why she stopped taking her medications nor why she restarted them. She denies any tremors, nausea, vomiting, adbominal pain, dysuria, urinary frequency. She states her psychiatrist is a Dr. Renee Wilburn in [place], [place]. In the emergency room, her vital signs were largely unremarkable, though her blood pressures were notably labile. Laboratory evaluation revealed a mild leukocytosis with WBC 12.2, platelet count 5 O2, but was otherwise unremarkable. BMP revealed an elevated creatinine at 1.49, improved to 1.21 with fluids, her baseline is currently unknown. Her calcium is also mildly elevated at 10.6 but this improved with fluids. Ammonia level was less than assay, troponin was negative. Procalcitonin was 0.11, and TSH was 2.2 weight. Her lithium level was elevated at 2.1 and she was admitted to Medicine for further management of her elevated lithium level. Urinalysis was performed which was contaminated but did not show evidence of active infection. Urine drug screen was positive for TCAs but was otherwise unremarkable. Discharge Providers Provider Date of admission: 11/11/20 08:13 Discharge Date: 11/17/20 Primary care physician: ELIA Moreno Consults: 11/12/20 12:04 Consult to Physical Therapy Evaluate & Treat Comment: Physician Instructions: Evaluate and Treat 11/13/20 12:07 Consult to Occupational Therapy Evaluate & Treat Comment: eval for inpatient psych Physician Instructions: Evaluate and treat Discharge provider: Azael Pascual DO Summary Hospital Course Discharge Diagnosis: 1. [employer] Toxicity with acute metabolic encephalopathy, resolved 2. Bipolar disorder 3. Elevated BP without a diagnosis of hypertension 4. Hypothyroidism 5. BECKY, resolved Hospital Course: This is a 60-year-old female with a past medical history of bipolar disorder who was admitted with metabolic encephalopathy secondary to lithium toxicity with a corresponding BECKY. She improved with cessation of her lithium and IV fluids. She was seen by Psychiatry, initially she was recommended for inpatient treatment however she did improve with resumption of her medications and she was not deemed suitable for inpatient psychiatry when attempted for placement. She was subsequently seen by Psychiatry who agreed with discharge home, she has a quick follow-up in the next few days with her home psychiatrist for continued medication adjustment as an outpatient. Time Spent with Patient Time spent: Greater than 30 minutes Exam Vital Signs (past 8 hours): - 11/17/20 04:54 Temperature 97.9 F Pulse Rate 94 H Respiratory Rate 18 Blood Pressure 135/76 Pulse Oximetry 97 Oxygen Delivery Method Room Air Oxygen Flow Rate 0 Narrative Exam Narrative: ENERAL APPEARANCE: no acute distress. LUNGS: clear bilaterally with no wheezes, rhonchi, or rales. CARDIOVASCULAR: regular rate and rhythm without any murmurs, gallops, rubs. ABDOMEN: Soft and nontender with normal bowel sounds. NEUROLOGIC: Alert and oriented. No focal deficits. Apprears slow and is mildly confused. Psych: Odd affect but states she feels to be her usual self now. No current SI or HI, no hallucinations currently. Objective Labs Result Diagrams: 11/14/20 05:30 11/16/20 05:47 [facility] Medical History Acne Anemia (~2015) Anxiety and depression Bipolar disease, chronic Carpal tunnel syndrome Chronic back pain Fibromyalgia (~1993) Headache Hypothyroidism Low grade squamous intraepithelial lesion (LGSIL) on cervical Pap smear Migraines Plantar warts Shoulder pain (~2017) Tremor Surgical History (Updated 07/21/19 @ 21:12 by Helen Gallegos) Anesthesia H/O hand surgery History of section Family History Father CAD (coronary artery disease) Mother Uterine cancer Sister No problems noted. Sister No problems noted. Daughter No problems noted. Daughter No problems noted. Son No problems noted. Social History household members: none Smoking Status: Smoker, status unknown alcohol intake: never Discharge Plan Discharge Plan Patient Disposition: Home Provider Discharge Comment: You were admitted to the hospital with high lithium levels and confusion. This improved with brief holds of your medications. You were seen by psychiatry here and were safe to resume your usual home medications. Please follow up with your psychiatrist as soon as possible for continued adjustment of your medications. Discharge orders & Medications Prescriptions: Continued carisoprodol [Soma] 250 mg tablet 350 mg PO TID RF: 0 clonazepam [Klonopin] 1 mg tablet 0.25 mg PO QPM RF: 0 levothyroxine 25 mcg capsule 112 mcg PO DAILY RF: 0 risperidone 1 mg Tablet 1 mg PO QAM RF: 0 risperidone 1 mg Tablet 2 mg PO BEDTIME RF: 0 omeprazole 40 mg Capsule,Delayed Release(Dr/Ec) 40 mg PO DAILY RF: 0 hydroxyzine HCl 25 mg Tablet 50 mg PO Q4HR PRN (Reason: Anxiety) RF: 0 venlafaxine 75 mg Tablet Extended Release 24hr 75 mg PO DAILY RF: 0 clonazepam 0.125 mg Tablet,Disintegrating 0.125 mg PO QAM RF: 0 amitriptyline 75 mg Tablet 75 mg PO BEDTIME RF: 0 lithium carbonate 300 mg Tablet Extended Release 600 mg PO BEDTIME RF: 0 simvastatin 40 mg Tablet 40 mg PO QPM RF: 0 Medication counseling provided by Pharmacist: Yes Follow up/Referrals: Nae Corral ARNP [Primary Care Provider] - Discharge Health Status Multidrug resistant organism: No MDRO Diet/Activity/Treatments Diet: Regular Activity: As tolerated Discharge Data Primary Care Provider: Nae Corral Quality VTE Deep Vein Thrombosis/Pulmonary Embolism Present on Admission: No
[2020-11-17] MEDS: risperiDONE 1 MG TABLET PO (08:17)
[2020-11-17] MEDS: VENLAFAXINE ER 75 MG CAP PO (08:17)
[2020-11-17 09:40] VITALS: PULSE 94; O2SAT 97
[2020-11-17] MEDS: hydrOXYzine pamoate 25 MG CAPSULE 50 MG PO (11:26)
[2020-11-17] MEDS: carisoprodoL 350 MG TABLET PO (11:26)
--- NOTE | 2020-11-17 11:41 | PC.NURSE ---
Addendum entered by Milagros Fonseca R.N. 11/17/20 12:18: @1220 patient escorted via wheelchair with personal belongings in hand to [employer] Original Note: Calm and cooperative; patient aware of some hallucinations; administered soma and vistiril for anxiety control/discharge; d/c instructions included medication chart, f/u appointments with PCP and psychiatry on [place]; julian pass in patient's possession; wallet from safe returned to patient; @1145, patient is dressed, packed and awaiting taxi
--- NOTE | 2020-11-17 16:55 | CM.DPC ---
DCP Continued: [employer] Student met with patient this morning she was alert and oriented. Patient denies suicidal ideations this morning. Patient reported she needs to not worry about losing weight, ?That?s what got me into this trouble.? Provided validation and additional encouragement and guidance to take medications as prescribed. Re-enforced the importance of making sure she attends her psychiatry appointment tomorrow 11/18/20 @ 11am with Dr. Matamoros. Patient gave permission to fax Dr. Matamoros?s office a discharge summary. Called and left a message with Dr. Matamoros office at regarding admission. Faxed a D/C summary to Dr. Matamoros at . Patient has enough money with her to pay for the [facility] to [place] however, Stacy faxed a [place] pass. Donny samayoa is scheduled for 1200am and confirmed transportation on [place] with Ashlie at [facility]. PLAN: D/C this date 11/17/20 to home: [facility] to [place] in [place], [place] pass provided to patient and [facility] or [facility] employee will provide transportation. Provided patient Resource Center number in case she is confused after disembarking [facility] . JOSEPH Pratt, [employer] Student
== END 2020-11-17 12:19 | disposition home or self-care (01) | DRG 917 ==
LOC: ED 11-11 05:45 → AC 11-11 08:14
PROVIDERS: Internal Medicine; Admitting Provider Internal Medicine; Emergency Provider Emergency Medicine; PCP Nurse Practitioner Family; Referring Provider Emergency Medicine; Visit Provider Internal Medicine
DX: T43.591A Poisoning by other antipsychotics and neuroleptics, accidental (unintentional), initial encounter (principal); G92 Toxic encephalopathy; N17.9 Acute kidney failure, unspecified; F31.9 Bipolar disorder, unspecified; E03.9 Hypothyroidism, unspecified; F20.9 Schizophrenia, unspecified; F43.10 Post-traumatic stress disorder, unspecified; Z20.822 Contact with and (suspected) exposure to COVID-19
CPT/HCPCS: 36415; 80048; 80053; 80178; 80305; 80320; 80329; 81001; 82140; 82550; 83605; 83735; 84145; 84443; 84484; 85007; 85025; 87040; 87635; 90792; 93005; 94760; 96360; 96361; 97116; 97162; 97165; 97530; 97535; 99231; 99284; C9803; G0480; J1642; J1650